=== PATIENT | female | born 1955 | race Hispanic/Latino ===

== ENCOUNTER 2018-03-01 07:15 | Day surgery (SDC) | payer MEDICARE, OTHER ==
[2018-02-28 13:03] LABS: APPEARANCE,URINE Clear (CLEAR); BASOPHILS % (AUTO) 0.8 % (0.0-5.0); BILIRUBIN,URINE Negative (NEGATIVE); COLOR,URINE Yellow (YELLOW); EOSINOPHILS % (AUTO) 7.2 % (0.0-8.0); GLUCOSE, URINE (UA) Negative (NEGATIVE); HEMATOCRIT 40.2 % (36-48); KETONES,URINE Negative (NEGATIVE); LEUKOCYTE ESTERASE ,URINE Negative (NEGATIVE); LYMPHOCYTES % (AUTO) 33.5 % (21.0-51.0); MEAN CORPUSCULAR HEMOGLOBIN 27.6 pg (27.0-33.0); MEAN CORPUSCULAR VOLUME 86.3 fL (79-99); MONOCYTES % (AUTO) 9.3 % (3.0-13.0); NEUTROPHILS % (AUTO) 49.2 % (40.0-77.0); NITRATE,URINE Negative (NEGATIVE); NUCLEATED RED BLOOD CELLS 0.1 % (0.0-0.19); OCCULT BLOOD,URINE Negative (NEGATIVE); PLATELET COUNT (AUTO) 221 K/uL (130-400); PROTEIN,URINE Negative (NEGATIVE); RED BLOOD CELL COUNT(AUTO) 4.66 MIL/uL (4.00-5.50); RED CELL DISTRIBUTION WIDTH 13.8 % (11.0-15.5); UROBILINOGEN,URINE 0.2 mg/dL (0.2-1.0)
[2018-02-28 13:19] LABS: ALBUMIN 4.1 g/dL (3.5-5.0); BILIRUBIN,TOTAL 0.7 mg/dL (0.2-1.0); CREATININE 0.6 mg/dL (0.5-1.5); TOTAL PROTEIN, SERUM 7.7 g/dL (6.0-8.3)
[2018-02-28 13:20] LABS: INR 0.94 (0.85-1.15); PARTIAL THROMBOPLASTIN TIME 28.3 SEC (26.3-35.5); PROTHROMBIN TIME 9.9 SEC (9.6-11.6)
[2018-02-28 13:42] VITALS: BP 160/63
--- NOTE | 2018-02-28 17:09 | NUR ---
CHEST XRAY REPORTED ABNORMAL CHEST XRAY TO DR. PATE. NO NEW ORDERS.
[2018-03-01] VITALS (14 sets, daily range): BP systolic 125–162; BP diastolic 60–74
[~2018-03-01] VITALS: Ht 149.9 cm; Wt 63.2 kg
[~2018-03-01 07:15] MED LIST: FLUT1DIS3 IH; GLUC100019 PO; IBUP200C5
[2018-03-01] MEDS: CEFAZOLIN SODIUM 1 GM VIAL IVP ONE ×2 (08:26→12:50)
[2018-03-01] MEDS ORDERED: LIDOCAINE PF 2% 5ML ABBOJECT ONE (12:08)
[2018-03-01] MEDS ORDERED: DEXAMETHASONE SOD PHOSPHATE 10MG/ML 1ML VIAL ONE (12:08)
[2018-03-01] MEDS ORDERED: PROPOFOL 10 MG/ML 20ML VIAL IV ONE (12:08)
[2018-03-01] MEDS ORDERED: MIDAZOLAM HCL 1 MG/ML 2ML VIAL ONE (12:09)
[2018-03-01] MEDS ORDERED: NEOSTIGMINE 5MG/5ML SYR IV ONE (12:09)
[2018-03-01] MEDS ORDERED: ONDANSETRON HCL 4 MG/2 ML VIAL ONE (12:09)
[2018-03-01] MEDS ORDERED: ROCURONIUM 10MG/1ML SYR 10 MG/ML ML ONE (12:09)
[2018-03-01] MEDS ORDERED: GLYCOPYRROLATE 1 MG/5 ML SYRINGE ONE (12:09)
[2018-03-01] MEDS ORDERED: CEFAZOLIN SODIUM 1 GM VIAL ONE ×2 (12:55→12:57)
[2018-03-01] MEDS ORDERED: LACTATED RINGERS 1000ML 1,000 ML IV ONE (13:03)
[2018-03-01] MEDS ORDERED: MEPERIDINE-PF 25 MG/ML SYG ONE ×2 (13:56→14:13)
--- NOTE | 2018-03-01 14:40 | NUR ---
NEW PT received pt from PACU, s/p right tenosynovectomy of flexor tendon , right wrist median nerve neuroplasty and release. bulky dressing noted to right wrist, neurovascular checks to right hand wnl. pt able to wiggle fingers, warm to touch, ice packs to site. vs stable on arrival. pt awake and alert.
--- NOTE | 2018-03-01 15:11 | NUR ---
DC DC INSTRUCTIONS REVIEWED AND GIVEN TO PT /PT FAMILY IN DETAILED, PHOTOCOPY OF DC ORDERS GIVEN , INSTRUCTED TO F/U WITH DR. PATE 03/02/18 AT 10:30 AM TO KEEP RIGHT ARM ELEVATED ABOVE HEART LEVEL. TO CONTINUE ROM TO RIGHT HAND FINGERS, TO KEEP DRESSING DRY AND INTACT AT ALL TIMES. TO TAKE MOTRIN OVER THE COUNTER WITH FOOD, MOTRIN 600MG PO Q 8 HRS PRN PAIN, TO TAKE COPY OF ABNORMAL CHEST XRAY TO PRIMARY DOCTOR . PT/ FAMILY VERBALIZED UNDERSTANDING. PIV REMOVED CATHETER INTACT SITE ASYMPTOMATIC. PT WILL GET DRESS AND DC HOME ONCE READY.
--- NOTE | 2018-03-01 15:35 | NUR ---
dc pt dc home, accompanied by family, pt awake and alert, right hand dressing dry and intact.
== END 2018-03-01 15:35 | disposition home or self-care (01) ==
LOC: DAH 07:15
DX: G56.01 Carpal tunnel syndrome, right upper limb (principal); M65.821 Other synovitis and tenosynovitis, right upper arm; I10 Essential (primary) hypertension; J45.909 Unspecified asthma, uncomplicated; Z98.890 Other specified postprocedural states; Z79.899 Other long term (current) drug therapy; Z90.710 Acquired absence of both cervix and uterus; Z79.01 Long term (current) use of anticoagulants
CPT/HCPCS: 25115; 36415; 64721; 71045; 80053; 81003; 85025; 85610; 85730; 88304; 93005; A4649; A6223; A6446; J0690; J1100; J2001; J2175 ×2; J2250; J2405; J2704; J2710; J3490; J7120 ×2; A4218

== ENCOUNTER 2018-07-19 08:21 | Day surgery (SDC) | payer MEDICARE, OTHER ==
[2018-07-18 11:29] VITALS: BP 145/68
[2018-07-18 11:29] LABS: BASOPHILS % (AUTO) 0.3 % (0.0-5.0); EOSINOPHILS % (AUTO) 2.7 % (0.0-8.0); HEMATOCRIT 40.1 % (36-48); LYMPHOCYTES % (AUTO) 23.8 % (21.0-51.0); MEAN CORPUSCULAR HEMOGLOBIN 28.4 pg (27.0-33.0); MEAN CORPUSCULAR HGB CONC 32.8 g/dL (32.0-36.0); MEAN CORPUSCULAR VOLUME 86.8 fL (79-99); MONOCYTES % (AUTO) 7.2 % (3.0-13.0); PLATELET COUNT (AUTO) 208 K/uL (130-400); RED BLOOD CELL COUNT(AUTO) 4.62 MIL/uL (4.00-5.50); RED CELL DISTRIBUTION WIDTH 14.3 % (11.0-15.5); WHITE BLOOD COUNT (AUTO) 4.3 K/uL (4.8-10.8)
[2018-07-18 11:31] LABS: APPEARANCE,URINE Clear (CLEAR); BILIRUBIN,URINE Negative (NEGATIVE); COLOR,URINE Yellow (YELLOW); GLUCOSE, URINE (UA) Negative (NEGATIVE); KETONES,URINE Negative (NEGATIVE); LEUKOCYTE ESTERASE ,URINE Negative (NEGATIVE); NITRATE,URINE Negative (NEGATIVE); OCCULT BLOOD,URINE Negative (NEGATIVE); PROTEIN,URINE Negative (NEGATIVE); UROBILINOGEN,URINE 0.2 mg/dL (0.2-1.0)
[2018-07-18 11:41] LABS: BILIRUBIN,TOTAL 0.6 mg/dL (0.2-1.0); CREATININE 0.8 mg/dL (0.5-1.5); POTASSIUM 4.1 mmol/L (3.5-5.1); TOTAL PROTEIN, SERUM 7.5 g/dL (6.0-8.3)
[2018-07-18 11:44] LABS: INR 0.95 (0.85-1.15); PARTIAL THROMBOPLASTIN TIME 29.2 SEC (26.3-35.5)
[2018-07-18] MEDS: CEFAZOLIN SODIUM 1 GM VIAL IVP SCH (13:30)
[~2018-07-19] VITALS: Ht 149.9 cm; Wt 61.1 kg
[2018-07-19] VITALS (18 sets, daily range): BP systolic 96–151; BP diastolic 55–91
[2018-07-19] MEDS ORDERED: LACTATED RINGERS 1000ML 1,000 ML IV ONE (09:36)
[2018-07-19] MEDS ORDERED: GLUC-172 PO (10:12)
[2018-07-19] MEDS ORDERED: ATOR10TA PO (10:13)
[2018-07-19] MEDS ORDERED: CETI10CA5 PO (10:15)
--- NOTE | 2018-07-19 10:36 | NUR ---
POTENTIAL FOR INFECTION: NO SHAVING NEEDED TO LEFT HAND, WIPED WITH VITALY 2% CHLORHEXIDINE GLUCONATE CLOTH PATIENTS PRE-OP SKIN PREP PER AGNES MALAGON MA.
--- NOTE | 2018-07-19 11:08 | NUR ---
VALUABLES: PATIENT OK TO REMOVE UPPER AND LOWER DENTURES AND FOR BETZAIDA ISRAEL RN TO HOLD ON TO THEM DURING SURGERY. EXPLAINED TO PATIENT THAT ONCE SHE WAKES UP IN PACU WILL PLACE BACK ON.
[2018-07-19] MEDS ORDERED: MIDAZOLAM HCL 1 MG/ML 2ML VIAL ONE (11:14)
[2018-07-19] MEDS ORDERED: PROPOFOL 10 MG/ML 20ML VIAL IV ONE (11:14)
[2018-07-19] MEDS ORDERED: LIDOCAINE PF 2% 5ML ABBOJECT ONE (11:14)
[2018-07-19] MEDS ORDERED: FENTANYL CITRATE PF 50 MCG/1 ML 2ML VIAL ONE ×2 (11:15→11:33)
[2018-07-19] MEDS: CEFAZOLIN SODIUM 1 GM VIAL IVP SCH (11:23)
[2018-07-19] MEDS ORDERED: ONDANSETRON HCL 4 MG/2 ML VIAL ONE (11:48)
[2018-07-19] MEDS ORDERED: MEPERIDINE-PF 25 MG/ML SYG ONE (12:42)
== END 2018-07-19 14:25 | disposition home or self-care (01) ==
LOC: DAH 08:21
DX: G56.02 Carpal tunnel syndrome, left upper limb (principal); M65.88 Other synovitis and tenosynovitis, other site; Z98.890 Other specified postprocedural states; Z79.899 Other long term (current) drug therapy; Z79.01 Long term (current) use of anticoagulants
CPT/HCPCS: 25115; 36415; 64721; 71045; 80053; 81003; 85025; 85610; 85730; 88305; 93005; A4649; A4930; A6223; A6446; J0690; J2001; J2175; J2250; J2405; J2704; J3010 ×2; J7120; Q4051

== ENCOUNTER 2019-12-22 00:22 | Emergency (ER) | payer MEDICARE, OTHER ==
[~2019-12-22 00:22] MED LIST changes: +ATOR10TA PO; +CETI10CA5 PO; +GLUC-172 PO; -GLUC100019 PO
[2019-12-22] MEDS ORDERED: ONDANSETRON HCL 4 MG/2 ML VIAL ONE (00:47)
[2019-12-22] MEDS ORDERED: HYDROMORPHONE HCL 0.5 MG/0.5 ML ML ONE (00:48)
[2019-12-22 00:56] LABS: APPEARANCE,URINE Clear (CLEAR); BILIRUBIN,URINE Negative (NEGATIVE); COLOR,URINE Yellow (YELLOW); GLUCOSE, URINE (UA) Negative (NEGATIVE); KETONES,URINE Negative (NEGATIVE); LEUKOCYTE ESTERASE ,URINE Negative (NEGATIVE); NITRATE,URINE Negative (NEGATIVE); OCCULT BLOOD,URINE Negative (NEGATIVE); PROTEIN,URINE Negative (NEGATIVE); UROBILINOGEN,URINE 0.2 mg/dL (0.2-1.0)
[2019-12-22 01:05] LABS: BASOPHILS % (AUTO) 0.4 % (0.0-5.0); EOSINOPHILS % (AUTO) 2.7 % (0.0-8.0); HEMATOCRIT 27.3 % (36-48); LYMPHOCYTES % (AUTO) 15.7 % (21.0-51.0); MEAN CORPUSCULAR HEMOGLOBIN 28.1 pg (27.0-33.0); MEAN CORPUSCULAR HGB CONC 31.5 g/dL (32.0-36.0); MEAN CORPUSCULAR VOLUME 89.2 fL (79-99); MONOCYTES % (AUTO) 7.4 % (3.0-13.0); NEUTROPHILS % (AUTO) 73.3 % (40.0-77.0); PLATELET COUNT (AUTO) 144 K/uL (130-400); RED BLOOD CELL COUNT(AUTO) 3.06 MIL/uL (4.00-5.50); WHITE BLOOD COUNT (AUTO) 5.6 K/uL (4.8-10.8)
[2019-12-22 01:22] LABS: CREATININE 0.7 mg/dL (0.5-1.5); POTASSIUM 4.5 mmol/L (3.5-5.1)
[2019-12-22] MEDS ORDERED: IOHEXOL-350 75 ML VIAL IV ONE (01:25)
[2019-12-22 01:26] LABS: BILIRUBIN,TOTAL 0.6 mg/dL (0.2-1.0); TOTAL PROTEIN, SERUM 8.5 g/dL (6.0-8.3)
[2019-12-22] MEDS ORDERED: MAGNESIUM CITRATE 296 ML SOLUTION ONE (02:53)
== END 2019-12-22 04:09 | disposition home or self-care (01) ==
LOC: EDH 00:22
DX: K59.00 Constipation, unspecified (principal); K43.9 Ventral hernia without obstruction or gangrene; R11.10 Vomiting, unspecified; E78.5 Hyperlipidemia, unspecified; Z72.0 Tobacco use; M19.90 Unspecified osteoarthritis, unspecified site; E87.1 Hypo-osmolality and hyponatremia; Z88.6 Allergy status to analgesic agent
CPT/HCPCS: 36415; 74177; 80053; 81003; 83690; 85025; 93005; 96361 ×2; 96374; 96375; 99285; J1170; J2405; Q9967

== ENCOUNTER 2020-04-22 07:24 | Inpatient (IN) | payer MEDICARE, OTHER ==
[~2020-04-22] VITALS: Ht 152.4 cm; Wt 60.0 kg
[~2020-04-22 07:24] MED LIST changes: -IBUP200C5; +IBUP200C5 PO
[2020-04-22 08:13] LABS: BASOPHILS % (AUTO) 0.3 % (0.0-5.0); EOSINOPHILS % (AUTO) 1.1 % (0.0-8.0); HEMATOCRIT 39.1 % (36-48); LYMPHOCYTES % (AUTO) 11.7 % (21.0-51.0); MEAN CORPUSCULAR HEMOGLOBIN 28.2 pg (27.0-33.0); MEAN CORPUSCULAR HGB CONC 32.5 g/dL (32.0-36.0); MEAN CORPUSCULAR VOLUME 86.7 fL (79-99); MONOCYTES % (AUTO) 7.5 % (3.0-13.0); PLATELET COUNT (AUTO) 202 K/uL (130-400); RED BLOOD CELL COUNT(AUTO) 4.51 MIL/uL (4.00-5.50); RED CELL DISTRIBUTION WIDTH 13.8 % (11.0-15.5); WHITE BLOOD COUNT (AUTO) 9.1 K/uL (4.8-10.8)
[2020-04-22 08:15] LABS: APPEARANCE,URINE Clear (CLEAR); BILIRUBIN,URINE Negative (NEGATIVE); COLOR,URINE Yellow (YELLOW); GLUCOSE, URINE (UA) Negative (NEGATIVE); KETONES,URINE 15 mg/dL (NEGATIVE); LEUKOCYTE ESTERASE ,URINE Negative (NEGATIVE); NITRATE,URINE Negative (NEGATIVE); OCCULT BLOOD,URINE Negative (NEGATIVE); PH,URINE >=9.0 (5.0-8.0); PROTEIN,URINE Negative (NEGATIVE); UROBILINOGEN,URINE 0.2 mg/dL (0.2-1.0)
[2020-04-22 08:21] LABS: ALBUMIN 3.9 g/dL (3.5-5.0); BILIRUBIN,TOTAL 1.3 mg/dL (0.2-1.0); CREATININE 0.7 mg/dL (0.5-1.5); POTASSIUM 3.8 mmol/L (3.5-5.1); TOTAL PROTEIN, SERUM 8.1 g/dL (6.0-8.3)
[2020-04-22] MEDS ORDERED: ONDANSETRON 4MG INJ ONE (08:24)
[2020-04-22] MEDS ORDERED: KETOROLAC 30MG VIAL (30MG/ML) ONE (08:24)
[2020-04-22] MEDS ORDERED: 0.9%NACL 1000ML 1,000 ML IV ONE (08:28)
[2020-04-22 08:37] LABS: BACTERIA,URINE Few /HPF (None Seen); RBC,URINE 0-1 /HPF (0-1); SQUAMOUS EPITHELIAL CELL,UR Few /HPF (0-2); WBC,URINE 0-1 /HPF (0-1)
[2020-04-22] MEDS ORDERED: IOHEXOL-350 75 ML VIAL IV ONE (09:14)
[2020-04-22] MEDS ORDERED: ZOSYN 3.375GM+NS 50ML 50 ML IV ONE ×2 (10:56→17:31)
[2020-04-22] MEDS: LACTATED RINGERS 1000ML 1,000 ML IV NR (12:00)
[2020-04-22] MEDS: ZOSYN 3.375GM+NS 50ML 50 ML IV SCH (16:00)
[2020-04-22] MEDS ORDERED: ACETAMINOPHEN 325 MG TAB ONE (17:01)
[2020-04-22] MEDS ORDERED: LACTATED RINGERS 1000ML 1,000 ML IV ONE (17:31)
[2020-04-22] MEDS ORDERED: MORPHINE 2 MG SYG IVP PRN (18:00)
[2020-04-22] MEDS ORDERED: MORPHINE 2 MG SYG ONE (18:01)
[2020-04-22 23:12] VITALS: BP 137/67
[2020-04-22] MEDS ORDERED: DICY20TA2 PO (23:54)
[2020-04-22] MEDS ORDERED: TRAZ-253 PO (23:54)
[2020-04-23] MEDS: TRAZODONE HCL 50 MG TAB PO SCH ×2 (00:55→20:29)
[2020-04-23] MEDS: ZOSYN 3.375GM+NS 50ML 50 ML IV SCH ×4 (00:57→23:54)
[2020-04-23] MEDS: LACTATED RINGERS 1000ML 1,000 ML IV NR ×4 (00:57→23:54)
[2020-04-23 04:40] VITALS: BP 117/51
[2020-04-23 07:00] VITALS: BP 114/70
[2020-04-23 07:51] LABS: BASOPHILS % (AUTO) 0.5 % (0.0-5.0); EOSINOPHILS % (AUTO) 4.8 % (0.0-8.0); HEMATOCRIT 34.4 % (36-48); LYMPHOCYTES % (AUTO) 15.3 % (21.0-51.0); MEAN CORPUSCULAR HEMOGLOBIN 27.4 pg (27.0-33.0); MEAN CORPUSCULAR HGB CONC 30.8 g/dL (32.0-36.0); MEAN CORPUSCULAR VOLUME 88.9 fL (79-99); NEUTROPHILS % (AUTO) 70.1 % (40.0-77.0); PLATELET COUNT (AUTO) 183 K/uL (130-400); RED BLOOD CELL COUNT(AUTO) 3.87 MIL/uL (4.00-5.50); RED CELL DISTRIBUTION WIDTH 13.8 % (11.0-15.5); WHITE BLOOD COUNT (AUTO) 5.8 K/uL (4.8-10.8)
[2020-04-23 07:53] LABS: CREATININE 0.7 mg/dL (0.5-1.5)
[2020-04-23 11:30] VITALS: BP 143/50
[2020-04-23] MEDS ORDERED: ALBUTEROL INHALER 90MCG/INH IH PRN (13:15)
[2020-04-23 16:00] VITALS: BP 120/57
[2020-04-23 19:42] VITALS: BP 140/68
[2020-04-24 00:18] VITALS: BP 121/45
[2020-04-24 04:27] VITALS: BP 115/59
[2020-04-24 06:08] LABS: BASOPHILS % (AUTO) 0.5 % (0.0-5.0); EOSINOPHILS % (AUTO) 6.2 % (0.0-8.0); HEMATOCRIT 33.3 % (36-48); LYMPHOCYTES % (AUTO) 20.3 % (21.0-51.0); MEAN CORPUSCULAR HEMOGLOBIN 27.7 pg (27.0-33.0); MEAN CORPUSCULAR HGB CONC 31.8 g/dL (32.0-36.0); MEAN CORPUSCULAR VOLUME 87.2 fL (79-99); MONOCYTES % (AUTO) 8.2 % (3.0-13.0); NEUTROPHILS % (AUTO) 64.6 % (40.0-77.0); PLATELET COUNT (AUTO) 193 K/uL (130-400); RED BLOOD CELL COUNT(AUTO) 3.82 MIL/uL (4.00-5.50); RED CELL DISTRIBUTION WIDTH 13.2 % (11.0-15.5)
[2020-04-24 06:22] LABS: CREATININE 0.7 mg/dL (0.5-1.5); POTASSIUM 3.6 mmol/L (3.5-5.1)
[2020-04-24 08:00] VITALS: BP 150/67
[2020-04-24] MEDS ORDERED: ALPRAZOLAM 0.25 MG TABLET PO SCH (08:15)
[2020-04-24] MEDS: ZOSYN 3.375GM+NS 50ML 50 ML IV SCH (09:38)
[2020-04-24 12:15] VITALS: BP 149/63
== END 2020-04-24 13:45 | disposition home or self-care (01) | DRG 392 ==
LOC: EDH 07:24 → EDHIP 11:39 → 3BH 21:16
PROVIDERS: ADMIT Internal Medicine; ATTEND Internal Medicine
DX: K57.92 Diverticulitis of intestine, part unspecified, without perforation or abscess without bleeding (principal); K56.7 Ileus, unspecified; M19.90 Unspecified osteoarthritis, unspecified site; F17.210 Nicotine dependence, cigarettes, uncomplicated; J45.909 Unspecified asthma, uncomplicated; Z66 Do not resuscitate; Z90.49 Acquired absence of other specified parts of digestive tract; Z90.710 Acquired absence of both cervix and uterus; Z83.3 Family history of diabetes mellitus; Z82.5 Family history of asthma and other chronic lower respiratory diseases; Z82.3 Family history of stroke; Z82.0 Family history of epilepsy and other diseases of the nervous system; Z80.9 Family history of malignant neoplasm, unspecified; Z82.49 Family history of ischemic heart disease and other diseases of the circulatory system
CPT/HCPCS: 36415; 74177; 80048; 80053; 81001; 84145; 85025; 85651; 86140; 87040; 93005; G0378; J1885; J2405; J2543; J7030; J7120; Q9967

== ENCOUNTER → 2020-06-04 | Outpatient (CLI) | payer MEDICARE, OTHER ==
[~2020-06-04] MED LIST changes: -ATOR10TA PO; +DICY20TA2 PO; +LIDOCAINE HCL 2% JELLY 5 ML TP ONE; +TRAZ-253 PO
== END | disposition home or self-care (01) ==
LOC: WHH 09:45
PROVIDERS: ATTEND Family Medicine
DX: S81.802A Unspecified open wound, left lower leg, initial encounter (principal); J45.909 Unspecified asthma, uncomplicated; M19.90 Unspecified osteoarthritis, unspecified site; F17.210 Nicotine dependence, cigarettes, uncomplicated; Z90.710 Acquired absence of both cervix and uterus; X58.XXXA Exposure to other specified factors, initial encounter; Y93.89 Activity, other specified; Y92.89 Other specified places as the place of occurrence of the external cause; Y99.8 Other external cause status
CPT/HCPCS: 11042; A4450; A6021; A6197

== ENCOUNTER → 2020-06-18 | Outpatient (CLI) | payer MEDICARE, OTHER ==
[~2020-06-18] MED LIST changes: -LIDOCAINE HCL 2% JELLY 5 ML TP ONE
== END | disposition home or self-care (01) ==
LOC: WHH 09:00
PROVIDERS: ATTEND Family Medicine
DX: S81.802D Unspecified open wound, left lower leg, subsequent encounter (principal); J45.909 Unspecified asthma, uncomplicated; M19.90 Unspecified osteoarthritis, unspecified site; F17.210 Nicotine dependence, cigarettes, uncomplicated; Z90.710 Acquired absence of both cervix and uterus; X58.XXXD Exposure to other specified factors, subsequent encounter
CPT/HCPCS: G0463

== ENCOUNTER 2021-06-14 08:50 | Emergency (ER) | payer MEDICARE, OTHER ==
[~2021-06-14] VITALS: Ht 152.4 cm; Wt 59.9 kg
[2021-06-14 09:30] LABS: BASOPHILS % (AUTO) 0.5 % (0.0-5.0); EOSINOPHILS % (AUTO) 2.9 % (0.0-8.0); HEMATOCRIT 38.7 % (36-48); LYMPHOCYTES % (AUTO) 15.8 % (21.0-51.0); MEAN CORPUSCULAR HEMOGLOBIN 28.2 pg (27.0-33.0); MEAN CORPUSCULAR HGB CONC 31.8 g/dL (32.0-36.0); MEAN CORPUSCULAR VOLUME 88.8 fL (79-99); MONOCYTES % (AUTO) 7.5 % (3.0-13.0); NEUTROPHILS % (AUTO) 72.4 % (40.0-77.0); PLATELET COUNT (AUTO) 204 K/uL (130-400); RED BLOOD CELL COUNT(AUTO) 4.36 MIL/uL (4.00-5.50); RED CELL DISTRIBUTION WIDTH 15.1 % (11.0-15.5); WHITE BLOOD COUNT (AUTO) 5.5 K/uL (4.8-10.8)
[2021-06-14 09:44] LABS: CREATININE 0.6 mg/dL (0.5-1.5); POTASSIUM 3.9 mmol/L (3.5-5.1)
[2021-06-14 09:48] LABS: ALBUMIN 3.8 g/dL (3.5-5.0); BILIRUBIN,TOTAL 0.5 mg/dL (0.2-1.0); MAGNESIUM 1.8 mg/dL (1.80-2.40); TOTAL PROTEIN, SERUM 7.1 g/dL (6.0-8.3)
[2021-06-14 10:15] LABS: B-TYPE NATRIURETIC PEPTIDE 44 pg/mL (0-100)
[2021-06-14 10:28] LABS: APPEARANCE,URINE Clear (CLEAR); BILIRUBIN,URINE Negative (NEGATIVE); COLOR,URINE Yellow (YELLOW); GLUCOSE, URINE (UA) Negative (NEGATIVE); KETONES,URINE Negative (NEGATIVE); LEUKOCYTE ESTERASE ,URINE Negative (NEGATIVE); NITRATE,URINE Negative (NEGATIVE); OCCULT BLOOD,URINE Negative (NEGATIVE); PROTEIN,URINE Negative (NEGATIVE); UROBILINOGEN,URINE 0.2 mg/dL (0.2-1.0)
[2021-06-14] MEDS ORDERED: IPRATROPIUM/ALBUTEROL SULFATE 3 ML SOLUTION IH ONE (11:00)
[2021-06-14] MEDS ORDERED: SOLU-MEDROL 125MG VIAL IVP ONE (11:00)
[2021-06-14] MEDS ORDERED: PRED20TA3 PO (12:47)
[2021-06-14] MEDS ORDERED: AZIT250T PO (12:47)
[2021-06-14] MEDS ORDERED: BENZ-39 PO (12:47)
[2021-06-14] MEDS ORDERED: AZITHROMYCIN 250 MG TABLET PO ONE (13:00)
[2021-06-14 13:06] VITALS: BP 135/74
== END 2021-06-14 13:07 | disposition home or self-care (01) ==
LOC: EDH 08:50
DX: J20.8 Acute bronchitis due to other specified organisms (principal); M19.90 Unspecified osteoarthritis, unspecified site; Z98.890 Other specified postprocedural states; Z79.899 Other long term (current) drug therapy
CPT/HCPCS: 36415; 71045; 80053; 81003; 82550; 83735; 83880; 84484; 85025; 93005; 94640; 96374; 99285; J2930

== ENCOUNTER → 2021-10-04 | Outpatient (CLI) | payer MEDICARE, OTHER ==
[~2021-10-04] MED LIST changes: +AZIT250T PO; +BENZ-39 PO; +PRED20TA3 PO
== END | disposition home or self-care (01) ==
LOC: RAH 11:22
PROVIDERS: ATTEND Dermatology
DX: J98.4 Other disorders of lung (principal); R76.12 Nonspecific reaction to cell mediated immunity measurement of gamma interferon antigen response without active tuberculosis
CPT/HCPCS: 71046

== ENCOUNTER 2021-11-20 02:37 | Emergency (ER) | payer MEDICARE, OTHER ==
[~2021-11-20] VITALS: Ht 154.9 cm; Wt 60.8 kg
[2021-11-20 03:16] LABS: BASOPHILS % (AUTO) 0.8 % (0.0-5.0); EOSINOPHILS % (AUTO) 22.1 % (0.0-8.0); HEMATOCRIT 43.3 % (36-48); LYMPHOCYTES % (AUTO) 12.2 % (21.0-51.0); MEAN CORPUSCULAR HGB CONC 31.4 g/dL (32.0-36.0); MEAN CORPUSCULAR VOLUME 89.1 fL (79-99); MONOCYTES % (AUTO) 7.7 % (3.0-13.0); NEUTROPHILS % (AUTO) 55.4 % (40.0-77.0); PLATELET COUNT (AUTO) 257 K/uL (130-400); RED BLOOD CELL COUNT(AUTO) 4.86 MIL/uL (4.00-5.50); RED CELL DISTRIBUTION WIDTH 15.3 % (11.0-15.5); WHITE BLOOD COUNT (AUTO) 10.5 K/uL (4.8-10.8)
[2021-11-20] MEDS: DEXAMETHASONE SOD PHOSPHATE 4 MG/ML 1ML VIAL IVP ONE (03:23)
[2021-11-20] MEDS: DiphenhydrAMINE HCL 50 MG/ML VIAL IV ONE (03:23)
[2021-11-20] MEDS: HYDROXYZINE 25 MG TABLET PO ONE (03:23)
[2021-11-20 03:26] LABS: CARBON DIOXIDE 28 mmol/L (21-32); CHLORIDE 106 mmol/L (101-111); CREATININE 0.7 mg/dL (0.5-1.5); GLOMERULAR FILTR. RATE CALC 88 mL/min (>60); GLUCOSE,RANDOM 85 mg/dL (70-105); POTASSIUM 3.7 mmol/L (3.5-5.1); SODIUM SERUM 142 mmol/L (136-145); UREA NITROGEN, BLOOD 18 mg/dL (7-18)
[2021-11-20] MEDS ORDERED: METH4TAB3 PO (03:29)
[2021-11-20] MEDS ORDERED: HYD25 PO (03:29)
[2021-11-20 03:30] LABS: ALANINE AMINOTRANSFERASE 44 U/L (12-78); ALBUMIN 4.1 g/dL (3.5-5.0); ASPARTATE AMINOTRANSFERASE 23 U/L (10-37); TOTAL PROTEIN, SERUM 7.6 g/dL (6.0-8.3)
[2021-11-20 03:32] LABS: CRP QUANTITATIVE < 2.00 mg/L (0.00-9.0)
[2021-11-20 03:57] VITALS: BP 164/64
== END 2021-11-20 04:29 | disposition home or self-care (01) ==
LOC: EDH 02:37
DX: R21 Rash and other nonspecific skin eruption (principal); L29.9 Pruritus, unspecified; Z79.899 Other long term (current) drug therapy; Z98.890 Other specified postprocedural states
CPT/HCPCS: 99284; 96374; 96375; 80053; 85025; 86140; 36415; J1100; J1200

== ENCOUNTER 2023-02-09 10:00 | Emergency (ER) | payer MEDICARE, OTHER ==
[~2023-02-09] VITALS: Ht 152.4 cm; Wt 59.0 kg
[~2023-02-09 10:00] MED LIST changes: +HYD25 PO; +METH4TAB3 PO
[2023-02-09 10:42] LABS: MEAN CORPUSCULAR HEMOGLOBIN 27.6 pg (27.0-33.0); MEAN CORPUSCULAR HGB CONC 32.1 g/dL (32.0-36.0); RED CELL DISTRIBUTION WIDTH 13.5 % (11.0-15.5); WHITE BLOOD COUNT (AUTO) 5.9 K/uL (4.8-10.8)
[2023-02-09 11:04] LABS: APPEARANCE,URINE CLEAR (CLEAR); BILIRUBIN,URINE NEGATIVE (NEGATIVE); COLOR,URINE YELLOW (YELLOW); GLUCOSE, URINE (UA) NEGATIVE (NEGATIVE); KETONES,URINE NEGATIVE (NEGATIVE); LEUKOCYTE ESTERASE ,URINE 75 Leu/uL (NEGATIVE); NITRATE,URINE NEGATIVE (NEGATIVE); PROTEIN,URINE NEGATIVE (NEGATIVE); UROBILINOGEN,URINE 0.2 mg/dL (0.2-1.0)
[2023-02-09 11:04] LABS: CREATININE 0.5 mg/dL (0.5-1.5); POTASSIUM 3.9 mmol/L (3.5-5.1)
[2023-02-09 11:05] LABS: ADD UA MICROSCOPIC YES
[2023-02-09 11:17] LABS: MAGNESIUM 1.8 mg/dL (1.80-2.40); THYROID STIMULATING HORMONE 0.98 uIU/mL (0.36-3.74)
[2023-02-09 11:25] LABS: BACTERIA,URINE RARE /HPF (None Seen); MUCUS,URINE RARE LPF (None Seen); SQUAMOUS EPITHELIAL CELL,UR FEW /HPF (0-2)
[2023-02-09] MEDS ORDERED: CEFTRIAXONE 2GM VIAL IVPB ONE (14:00)
[2023-02-09] MEDS ORDERED: TOPI25TA42 PO (14:08)
[2023-02-09] MEDS ORDERED: CEPH500B PO (14:08)
[2023-02-09 15:04] VITALS: BP 151/78; PULSE 70; RESP 18; O2SAT 99
== END 2023-02-09 15:05 | disposition home or self-care (01) ==
LOC: EDH 10:00
DX: N39.0 Urinary tract infection, site not specified (principal); G43.109 Migraine with aura, not intractable, without status migrainosus; Z79.51 Long term (current) use of inhaled steroids
CPT/HCPCS: 99285; 96365; 70450; 71045; 84443; 83735; 84484; 80048; 85027; 87088; 81001; 36415; 93005; J0696

== ENCOUNTER → 2023-03-06 | Outpatient (CLI) | payer MEDICARE ==
[~2023-03-06] MED LIST changes: +CEPH500B PO; +TOPI25TA42 PO
[2023-03-06] MEDS: REGADENOSON 0.4 MG/5 ML PF SYG IVP ONE (15:39)
== END | disposition home or self-care (01) ==
LOC: SHCH 09:02
PROVIDERS: ATTEND Internal Medicine
DX: R07.9 Chest pain, unspecified (principal)
CPT/HCPCS: 78452; 96374; 93017; J2785; A9500 ×2

== ENCOUNTER → 2023-03-23 | Outpatient (CLI) | payer MEDICARE | END | disposition home or self-care (01) | LOC: SHCH 15:06 | PROVIDERS: ATTEND Internal Medicine | DX: R07.9 Chest pain, unspecified (principal); I10 Essential (primary) hypertension | CPT/HCPCS: 93306 ==

== ENCOUNTER 2024-10-25 14:51 | Emergency (ER) | payer MEDICARE ==
[~2024-10-25] VITALS: Ht 147.3 cm; Wt 65.8 kg
--- NOTE | 2024-10-25 15:14 | ERN ---
General Chief Complaint: Nosebleed Stated Complaint: NOSE BLEED Time Seen by MD: 14:55 Source: patient History of Present Illness Initial Comments Patient is a 69-year-old female coming in complaining of bleeding nose. Per patient she was doing some shopping in noticed a trickle of blood coming from her nose which increased to significant amount. She decided to come in for fu rther evaluation she does not report any trauma. Allergies: Coded Allergies: No Known Drug Allergies (Unverified Allergy, Unknown, 04/23/20) No Known Food Allergies (Unverified Allergy, Unknown, 04/23/20) Home Meds Active Scripts Topiramate (Topamax) 25 Mg Tablet, 25 MG PO DAILYDINNER, #30 TAB 2 Refills Prov:MACKENZIE GROSS Sr., MD 02/09/23 Cephalexin Monohydrate (Keflex) 500 Mg Cap, 500 MG PO QID for 7 Days, #28 CAP 0 Refills Prov:MACKENZIE GROSS Sr., MD 02/09/23 Hydroxyzine HCl (Atarax) 25 Mg Tab, 25 MG PO QID for ITCHINESS, #30 TAB Prov:PATRICIA MILLER MD 11/20/21 Methylprednisolone (Medrol) 4 Mg Tab.ds.pk, 4 MG PO AD for 5 Days, #1 KIT Prov:PATRICIA MILLER MD 11/20/21 Azithromycin (Zithromax) 250 Mg Tablet, 250 MG PO DAILY for 4 Days, #4 TAB 0 Refills Prov:SILVIANO GOEL MD 06/14/21 Prednisone (Prednisone) 20 Mg Tablet, 1 TAB PO AD for 6 Days, #14 TAB 0 Refills TAKE 1 TAB BY MOUTH THREE TIMES PER DAY X3 DAYS, THEN TAKE 1 TAB BY MOUTH TWICE A DAY X2 DAYS, THEN TAKE 1 TAB BY MOUTH ONCE A DAY X1 DAY. Prov:SILVIANO GOEL MD 06/14/21 Benzonatate (Tessalon Perles) 100 Mg Cap, 100 MG PO TID PRN for COUGH, #30 CAP 0 Refills Prov:SILVIANO GOEL MD 06/14/21 Reported Medications Trazodone HCl (Desyrel) 50 Mg Tab, 1-2 TAB PO HS 04/22/20 Dicyclomine HCl (Bentyl) 20 Mg Tab, 1 TAB PO TID PRN for ABDOMINAL PAIN 04/22/20 Cetirizine HCl (Zyrtec) 10 Mg Capsule, 10 MG PO AM, CAP 07/19/18 Glucosamine/D3/Boswellia Roz (Osteo Bi-Flex Caplet) 1 Each Tablet, 1 EACH PO AM, TAB 07/19/18 Fluticasone/Salmeterol (Advair 250-50 Diskus) 1 Each Blst.w.dev, 1 EACH IH HS PRN for SHORTNESS OF BREATH/WHEEZING 05/19/15 Ibuprofen (Advil) 200 Mg Capsule, 200 MG PO Q4-6 H PRN for MILD PAIN (1-3), CAP 08/20/14 Past Medical History Past Medical History: No Pertinent History Past Surgical History: Other Surgical History Other: ABDOMINAL Social History Social History: Negative, Lives with family Female( History) History: Not Applicable ROS Dictation CONSTITUTIONAL: No chills, no fever, no weakness, no diaphoresis, no malaise. HEAD/FACE: No signs of trauma. EENT: No eye pain, no blurred vision, no tearing, no double vision, no ear pain, no ear discharge, no nose pain, no nasal congestion, no throat pain, no throat swelling, no mouth pain. RESPIRATORY: No cough, no orthopnea, no SOB, no stridor, no wheezing. CARDIOVASCULAR: No chest pain, no edema, no palpitations, no syncope. GASTROINTESTINAL/ABDOMINAL: No abdominal pain, no constipation, no diarrhea, no nausea, no vomiting. GENITOURINARY: No abnormal discharge, no dysuria, no frequent urination, no he maturia. No complaints of pain in the genitals. MUSCULOSKELETAL: No back pain, no gout, no joint pain, no joint swelling, no m uscle pain, no muscle stiffness, no neck pain. INTEGUMENTARY: No change in color, no change in hair/nails, no dryness, no lesi on, no lumps, no rash. NEUROLOGICAL/PSYCH: No anxiety, not depressed, no emotional problem, no headache, no numbness, no pre-existing deficit, no history of seizures, no tremors, no weakness. HEMATOLOGIC/LYMPHATIC: Not anemic, no history of blood clots, no apparent bleeding, no bruising, glands not swollen. All Systems Negative, Except as Noted. Physical Exam Physical Exam Dictation VITAL SIGNS: Reviewed. GENERAL APPEARANCE: Alert, oriented x3, no acute distress, obese. HEAD AND FACE: Non-traumatic. EYES: PERRL, pink conjunctivas, eyelid no trauma, anterior chamber clear. EARS: Pinnas intact and no signs of trauma or erythema. Ear canals clear and no discharge. TMs no erythema. NOSE: No discharge, no bleeding. OROPHARYNX: Mouth normal, teeth no caries, tongue pink. Pharynx clear, no erythema. Tonsils no exudates, no abscesses noted. Mucous membrane moist. NECK: Supple, non-tender, no thyromegaly, no masses, no JVD, no bruits. BREAST: Deferred. CHEST: No tenderness, no crepitus, no paradoxical movement, no retractions. LUNGS: Clear, well-ventilated, symmetric, no rales, no wheezing, no rhonchi, no stridor, good breath sounds bilaterally. HEART: Regular rate, regular rhythm, no murmur, no gallops. VASCULAR: No peripheral edema. ABDOMEN: Soft, positive bowel sounds, nondistended, no guarding, nontender, no rebound, no masses no hepatomegaly, no splenomegaly, no Bravo's sign, no hernias. RECTAL: Deferred. GENITAL: Deferred. NEUROLOGICAL: Normal speech, gross motor function intact, gross sensory function intact. MUSCULOSKELETAL: Neck nontender, full range of motion, back nontender, full range of motion. EXTREMITIES: Nontender, full range of motion. SKIN: Color pink, dry, no turgor, no rash, no lacerations, no abrasions, no contusions. LYMPHATICS: Deferred. Results Laboratory and Microbiology Labs Reviewed?: Yes MDM MDM: Differential diagnosis: Epistaxis, no nasal bleed, Rationale: Tests considered and ordered secondary to shared decision making include: Previous outside records reviewed: Old ER visits. Risk of complication and/or morbidity or mortality of patient management: None Medications-Per medication reconciliation Need for hospitalization: Patient does not meet criteria for hospitalization. Need for emergency major/minor surgery: No Patient is a 69-year-old female coming in complaining of the epistaxis. Per patient she has a smell at the store which increased. In triage patient did not have bleeding. Afrin was sprayed patient was monitored for an hour and 20 minutes no bleeding was present. Patient will be discharged in stable condition with a diagnosis of epistaxis. ED Course Orders Procedure Category Date Status Time Oxymetazoline Hcl PHA 10/25/24 In Process [place] (Afrin) 15:00 Neomy PHA 10/25/24 Complete Sulf/Bacitra/Polymyxin 15:00 Current Medications Medications (Trade) Dose Ordered Sig/Ana [place]isa Route PRN Reason Start Time Stop Time Status Last Admin Dose Admin Neomycin/ Polymyxin/ Bacitracin (Triple Antibiotic Ointment) 1 appl ONCE ONCE TP 10/25/24 15:00 10/25/24 15:02 DC 10/25/24 15:30 Oxymetazoline HCl (AFrin) 2 sprays ONCE EN 10/25/24 15:00 11/24/24 14:59 10/25/24 15:30 Vital Signs Date Time Temp Pulse Resp B/P (MAP) Pulse Ox O2 Delivery O2 Flow Rate FiO2 10/25/24 15:01 98.1 56 16 148/82 98 Room Air* 0 21 10/25/24 14:53 97.0 60 20 148/84 99 Room Air DX & DISP Disposition: Discharge Departure Impression: Primary Impression: Epistaxis Condition: Stable Scripts Loratadine (Loratadine) 10 Mg Tablet 1 TAB PO DAILY for allergy symptoms for 30 Days, #30 TAB 0 Refills Prov: JOHN SAMS MD 10/25/24 Sodium Chloride ([place] Saline) 0.65 % Drops 2 DROP NS QID, #50 ML 0 Refills Prov: JOHN SAMS MD 10/25/24 Additional Instructions: FOLLOW-UP WITH PRIMARY CARE PROVIDER IN 1 TO 2 DAYS. TAKE MEDICATIONS DIRECTED HERE IN THE EMERGENCY ROOM. OKAY TO CONTINUE HOME MEDICATIONS UNLESS OTHERWISE DISCUSSED DURING YOUR VISIT IN THE EMERGENCY ROOM TODAY. RETURN TO YOUR NEAREST EMERGENCY ROOM IF SYMPTOMS WORSEN OR IF THERE IS NO IMPROVEMENT. CALL 911 IF YOU NEED IMMEDIATE ASSISTANCE. TAKE TYLENOL [id number] NEEDED AND IF NO CONTRAINDICATIONS ARE PRESENT. INCREASE ORAL HYDRATION. A WOUND CULTURE OR URINE CULTURE WAS ORDERED HERE IN THE EMERGENCY ROOM DEPARTMENT PLEASE FOLLOW-UP WITH PRIMARY CARE PROVIDER AND ADVISE THEM TO GET REPORTS FROM OUR FACILITY. IF YOU HAD ANY EVELINA WRAP/SPLINTS THAT WERE APPLIED HERE, PLEASE DO NOT REMOVE THEM UNTIL YOU SEE YOUR PRIMARY CARE OR SPECIALTY. Referrals: Referrals: ISAMAR NEIL (PCP) KITA WARNER MD Time of Disposition: 16:13 JOHN SAMS MD Oct 25, 2024 15:14
[2024-10-25] MEDS: OXYmetazoline HCL SPRAY 100 SPRAYS/15 ML BOTTLE EN SCH (15:30)
[2024-10-25] MEDS: NEOMY SULF/BACITRA/POLYMYXIN B 1 EACH PACKET TP ONE (15:30)
[2024-10-25] MEDS ORDERED: LORA10TA7 PO (16:14)
[2024-10-25] MEDS ORDERED: SODI50DR NS (16:14)
[2024-10-25 16:15] VITALS: BP 148/80; PULSE 60; RESP 16; TEMP 98.1; O2SAT 98
== END 2024-10-25 16:20 | disposition home or self-care (01) ==
LOC: EDH 14:51
DX: R04.0 Epistaxis (principal); Z79.51 Long term (current) use of inhaled steroids; Z79.899 Other long term (current) drug therapy
CPT/HCPCS: 99282

== ENCOUNTER 2024-12-18 06:57 | Observation (INO) | payer MEDICARE ==
[2024-12-17 10:31] VITALS: BP 142/78; PULSE 71; RESP 15; TEMP 98.1
--- NOTE | 2024-12-17 10:32 | EKG ---
[facility] Test Date: 2024-12-17 Test Time: 11:17:16 Pat Name: ALEX BELLA Department: [facility] Room: 418 Gender: F Modeling Director: [id number] : 1955 Requested By: KIM CODY Order Number: [id number] Reading MD: Daria Mcmanus Measurements Intervals [place] Rate: 82 P: 56 CA: 135 QRS: 22 QRSD: 78 T: 43 QT: 374 QTc: 436 Interpretive Statements Sinus rhythm Compared to ECG 02/09/2023 10:19:44 No significant changes Electronically Signed On 12-19-2024 12:38:45 CHEMICAL MACHINE TENDER by Daria Mcmanus Please click the below link to view image of tracing.
[2024-12-17 10:37] LABS: IMMATURE GRANULOCYTE ABSOLUTE 0.16 K/uL (0-1); NUCLEATED RED BLOOD CELLS 0.0 % (0.0-0.19); PLATELET COUNT (AUTO) 271 K/uL (130-400); RED BLOOD CELL COUNT(AUTO) 4.67 MIL/uL (4.00-5.50); RED CELL DISTRIBUTION WIDTH 14.2 % (11.0-15.5); WHITE BLOOD COUNT (AUTO) 5.4 K/uL (4.8-10.8)
[2024-12-17 10:54] LABS: INR 0.97 (0.85-1.15)
--- NOTE | 2024-12-17 14:26 | NUR ---
RE: YEAST INFECTION REPORTED TO DR CODY THAT PATIENT IS TAKING FLUCONAZOLE/METRONIDAZOLE PO FOR VAGINAL YEAST INFECTION. NO NEW ORDERS, OK TO PROCEED.
[~2024-12-18] VITALS: Ht 147.3 cm; Wt 69.4 kg
[2024-12-18] VITALS (24 sets, daily range): BP systolic 120–199; BP diastolic 54–101; PULSE 75–89; RESP 15–20; TEMP 97.2–98.2; O2SAT 98
[~2024-12-18 06:57] MED LIST changes: +ADV250 IH; -AZIT250T PO; -BENZ-39 PO; -CEPH500B PO; -CETI10CA5 PO; -DICY20TA2 PO; +FLUC150T48 PO; -FLUT1DIS3 IH; -GLUC-172 PO; -HYD25 PO; -IBUP200C5 PO; -METH4TAB3 PO; +METR-172 PO; -PRED20TA3 PO; +SENN8.6T32 PO; -TOPI25TA42 PO; -TRAZ-253 PO
[2024-12-18] MEDS: LACTATED RINGERS 1000ML 1,000 ML IV ONE (07:34)
[2024-12-18] MEDS: TRANEXAMIC ACID 1000MG/10ML ONE (07:55)
[2024-12-18] MEDS ORDERED: LIDOCAINE PF 100MG/5ML (2%) SYRINGE 5ML ONE (08:01)
[2024-12-18] MEDS ORDERED: SUCCINYLCHOLINE CHLORIDE 20 MG/ML 10 ML VIAL ONE (08:01)
[2024-12-18] MEDS ORDERED: GLYCOPYRROLATE 0.2 MG/ML 5 ML VIAL ONE (08:02)
[2024-12-18] MEDS ORDERED: NEOSTIGMINE METHYLSULFATE 1MG/ML IV ONE (08:02)
[2024-12-18] MEDS ORDERED: MIDAZOLAM HCL 1 MG/ML 2ML VIAL ONE (08:05)
[2024-12-18] MEDS: SUGAMMADEX SODIUM 200 MG/2 ML VIAL IV ONE (08:08)
[2024-12-18] MEDS: FAMOTIDINE 20MG VIAL IV ONE (08:09)
[2024-12-18] MEDS ORDERED: PROMETHAZINE HCL 25 MG/ML 1ML AMPULE IM PRN (08:30)
[2024-12-18] MEDS: TRANEXAMIC ACID 1000MG/10ML IV ONE ×2 (09:40→11:55)
--- NOTE | 2024-12-18 11:57 | OP ---
Operative Note: DATE OF PROCEDURE: 12/18/24 PREOPERATIVE DIAGNOSIS: Right knee osteoarthritis. POSTOPERATIVE DIAGNOSIS: Right knee osteoarthritis. PROCEDURE PERFORMED: Right knee total knee arthroplasty. SURGEON: Beata Sepulveda MD [facility] NURSING DIRECTOR: Marielena Golden. ANESTHESIA: General with adductor canal block. ANESTHESIA: BRONWYN Escobedo. ESTIMATED BLOOD LOSS: 100cc. COMPLICATIONS: None. DRAINS: None. SPECIMENS REMOVED: resected bone. Not sent to pathology. IMPLANTS: [employer] Journey II BCS size 4 Oxinium femur, size 2 tibial base plate, 32 mm patella, 9 mm polyethylene STATEMENT OF MEDICAL NECESSITY: The patient is a 69-year-old female who suffers from right knee osteoarthritis failing conservative management. After discussion of the risks, benefits, and alternatives with the patient, they voluntarily agreed to undergo the aforementioned procedure. DESCRIPTION OF PROCEDURE: Patient was properly identified in the preoperative holding area. Surgical site marking was verified and surgery consent reviewed. The patient was then taken to the operating room and placed in supine position on the OR table. After induction of general anesthesia, preoperative antibiotics were given, all bony prominences were well-padded, and a well padded tourniquet was applied but not inflated at this time. The right lower extremity was then prepped and draped in usual sterile fashion. Surgical time out was done verifying correct surgery, side, site, and location to be performed. We then began the procedure by exsanguinating the limb using an Esmarch and inflating the tourniquet to 350 mmHg. At this point, we made an anterior midline incision using a 10 blade, coming down sharply the level of the fascia. Skin flaps were elevated medially and laterally. We then obtained a clean 10 blade and performed a standard medial parapatellar arthrotomy. We excised the infrapatellar fat pad. We performed our soft tissue releases off of the tibia. We transected the ACL and removed the anterior portion of the medial & lateral meniscus. We then brought the knee into hyperflexion with the patella everted. We used our entry reamer to enter the femoral canal. We then placed our intramedullary cutting guide for our distal femoral cutting block. We then performed our distal femoral osteotomy ensuring appropriate rotation and removed the bony wafer. However, secondary to limited lateral femoral condyle resection, we elected to go ahead and take +2 mm this time. We then removed these pins and block and then used jig 2 to size the distal femur with the after mentioned size found. We then placed our 5-in-1 cutting block in 5 degrees of external rotation and took our 5 cuts ensuring to protect the patellar tendon and the collateral ligaments. We then removed the cutting block and our bony fragments using a curved osteotome. We then placed our PCL retractor subluxating the tibia anteriorly. Using an extra medullary tibial cutting guide, we hung the block for our proximal tibial cut taking 2 mm off the more diseased portion. Prior to pinning this block in place, we ensured appropriate varus/valgus alignment and posterior slope similar to the [place] slope of the patient's knee. We then performed our proximal tibial osteotomy and removed the bony wafer using Bovie electrocautery to release any remaining soft tissue attachments. We then used our tibial sizing paddle and checked once more for varus & valgus alignment and found this to be appropriate. At this point, we pinned our tibial paddle in place. We then removed the PCL retractor and subluxated the tibia posteriorly while we placed our femoral trial component. We then finished preparing the notch with the reamer and box chisel. The notch portion of the trial femoral component was then placed. A posterior stabilized polyethylene, size 9 trial was placed. The knee was then taken through range of motion and found to have stable full range of motion. We then placed a bump under the ankle and everted the patella to perform our freehand cut of the undersurface the patella. We then sized our patella and reamed to the lug holes for this. We placed our trial patellar component and begin to take the knee through range of motion. The patella had significant lateral tracking, and we performed a large lateral release. We persisted with significant lateral tracking that improved after externally rotating the tibial component is slightly more. At this point we began removing our trial components and punched the tibial keel prior to removing our tibial trial component. Final components were opened and cement was mixed on the back table while we injected local cocktail in the posterior capsule. We then thoroughly irrigated out the bone and dried the bony surfaces. We cemented our tibial component in place ensuring to remove excess cement and placed our trial polyethylene. We then cemented our femoral component in place once again taking time to ensure excess cement was removed leg was brought into full extension to help squeeze the excess cement from around the femoral component. We then brought the knee back in a flexion to remove this portion of the cement at this point we placed the ankle in a bump thoroughly irrigated off the patellar component and cemented our patellar component in standard fashion again removing excess cement. While we waited for the cement to cure, we thoroughly irrigated out the wound with normal saline. Once our cement had cured, we took the knee through a range of motion and found full and stable range of motion. We then elected to use the size 9 polyethylene and removed our trial polyethylene. We impacted our final polyethylene component in place in standard fashion and took the knee through a range of motion check once more. This was satisfactory so we began to repair the arthrotomy using #1 Vicryl in interrupted [id number] fashion. Subcutaneous tissue was repaired using 2-0 Vicryl. Running subcuticular 3-0 Monocryl stitch with Dermabond placed over this for the skin. We then applied a foam barrier dressing and a pressure dressing consisting of 4 x 4's fluffs and an Yaron wrap. The tourniquet was then deflated. Patient was awakened from anesthesia, and they were taken to the recovery room in stable condition. BEATA SEPULVEDA MD Dec 18, 2024 11:57
[2024-12-18] MEDS ORDERED: FERROUS FUMARATE 324 MG TABLET PO PRN (12:00)
[2024-12-18] MEDS ORDERED: CALCIUM CARB 500MG PO PRN (12:00)
[2024-12-18] MEDS ORDERED: HYDROcodone/APAP 5/325 1 TAB TABLET PO PRN (12:00)
[2024-12-18] MEDS ORDERED: PoTASSium chl 10% ELIXIR 20MEQ 20 MEQ/15 ML UDCUP PO PRN (12:00)
[2024-12-18] MEDS ORDERED: PoTASSium chloRIDE 20MEQ ER 20 MEQ ERTAB PO PRN (12:00)
[2024-12-18] MEDS ORDERED: CYCLOBENZAPRINE HCL 10 MG TABLET PO PRN (12:00)
--- NOTE | 2024-12-18 13:10 | NUR ---
PT ARRIVED VIA BED. AOX3. C/O PAIN TO RLE. DAUGHTER AT BEDSIDE. ICE PACKS PROVIDED. STRONG PEDAL PULSE.
--- NOTE | 2024-12-18 13:15 | NUR ---
ORTHO COORDINATOR: PRIMARY NURSE AT BEDSIDE PERFORMING ASSESSMENT. ICE PACK TO SURGICAL SITE, B SCD SLEEVES IN PLACE AND FUNCTIONING. PENDING RESPIRATORY VISIT.
[2024-12-18] MEDS: HYDROcodone/APAP 5/325 1 TAB TABLET PO PRN (13:46)
[2024-12-18] MEDS: 0.9%NACL 1000ML 1,000 ML IV SCH (13:47)
[2024-12-18] MEDS: ERGOCALCIFEROL (VITAMIN D2) 50,000 UNIT CAPSULE PO ONE (13:47)
--- NOTE | 2024-12-18 14:30 | NUR ---
Patient required moderate verbal cues and education as to why she is experiencing pain. She reports she has been told she would not have pain. Explained to patient this pain is due to the surgical procedure and will decrease in time. Patient reports she is upset, she would not have had surgery if she knew how much this would hurt. Educated patient to request pain meds with breakfast and lunch so her pain levels would be at a tolerable level to participate with PT. 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 Patient [place] PT recommendations at time of eval is rehab primary with home with HHPT as secondary recommendation.
--- NOTE | 2024-12-18 16:26 | HMCIMG ---
EXAM: CR right Knee, 2 View. CLINICAL HISTORY: S/P RT TKA SURGERY COMPARISON: None provided. FINDINGS: BONES: No acute fracture or aggressive appearing osseous lesion. JOINTS: Right total knee arthroplasty is in near-anatomic alignment. There are appropriate postsurgical changes about the right knee joint. SOFT TISSUES: The soft tissues are unremarkable. IMPRESSION: 1. Right total knee arthroplasty in near-anatomic alignment with appropriate postsurgical changes. 2. No acute findings. /[place]
--- NOTE | 2024-12-18 19:30 | NUR ---
assessment note/education patient awake, alert, ox3, patients daughter at bedside, reinforce is as previously done with maximum volume inspiration 1500, teach patient and family plan of care, pain management and expected outcome, both verbalize understanding via teach back, right knee with ivonne bandage d/i,apply fresh ice back, ble scds in place, call lofton at reach
[2024-12-18] MEDS ORDERED: SALMETEROL IH PRN (23:00)
[2024-12-18] MEDS ORDERED: FLUTICASONE IH PRN (23:00)
[2024-12-19] VITALS: BP 124/64; PULSE 85; RESP 17; TEMP 98.2
[2024-12-19 04:00] VITALS: BP 148/64; PULSE 78; RESP 17; TEMP 97.8
[2024-12-19 05:10] LABS: NUCLEATED RED BLOOD CELLS 0.0 % (0.0-0.19); PLATELET COUNT (AUTO) 228.0 K/uL (130-400); RED BLOOD CELL COUNT(AUTO) 3.5 MIL/uL (4.00-5.50); RED CELL DISTRIBUTION WIDTH 14.3 % (11.0-15.5); WHITE BLOOD COUNT (AUTO) 11.6 K/uL (4.8-10.8)
[2024-12-19 05:24] LABS: CREATININE 0.8 mg/dL (0.5-1.0); GLOMERULAR FILTR. RATE CALC 79.0 mL/min (>90); GLUCOSE,RANDOM 129.0 mg/dL (70-105); SODIUM SERUM 136.0 mmol/L (136-145); UREA NITROGEN, BLOOD 17.0 mg/dL (7-18)
[2024-12-19 08:00] VITALS: O2SAT 94
[2024-12-19 08:21] VITALS: BP 138/72; PULSE 81; RESP 18; TEMP 98
--- NOTE | 2024-12-19 08:21 | PN ---
Ortho POD #1. This morning the patient is currently back in bed. Stated that she was in the chair since about 0430 and then became a bit nauseated and dizzy and was assisted to bed. At present states that those symptoms have subsided. Discussed with the patient that if she feels better I would like for her to try to spend most of her day out of bed in the chair alternating extension and flexion of the knee using a foot stool. She understood. 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 VSS, Afbrile. Laboratory results reviewed. Noted to have a drop in H & H as expected. Will continue to monitor and treat as necessary per protocol. Operative findings discussed with the patient. Voiding on her own without difficulty. pending to pass gas. The ivonne bandage has been removed. The dressing is intact, Negative Zev's. SCD sleves currently not on but available. Ice currently not present but reenforced through out the day. Reenforced IS. She is pending PT this morning. Anticipated d/c goal is HH/PT Assessment: s/p RT TKA Actue post operative blood loss anemia Plan: Continue with Dr. Sepulveda TKA protocol and discharge planning. Acute post operative blood loss anemia address with protocol as necessary Vitals/Labs Vital Signs Date Time Temp Pulse Resp B/P (MAP) Pulse Ox O2 Delivery O2 Flow Rate FiO2 12/19/24 04:00 97.9 78 17 148/64 95 Room Air 12/18/24 20:00 0 21 Laboratory Tests 12/19/24 04:37 Medications Current Medications Cefazolin Sodium 2 gm STK-MED ONCE .ROUTE; Start 12/18/24 at 07:34; Stop 12/18/24 at 07:35; Status DC Lactated Ringer's 1,000 ml @ As Directed STK-MED ONCE IV; Start 12/18/24 at 07:34; Stop 12/18/24 at 07:35; Status DC Ketorolac Tromethamine 30 mg STK-MED ONCE .ROUTE; Start 12/18/24 at 07:43; Stop 12/18/24 at 07:44; Status DC Ropivacaine 150 mg STK-MED ONCE .ROUTE; Start 12/18/24 at 07:44; Stop 12/18/24 at 07:44; Status DC Tranexamic Acid 1,000 mg STK-MED ONCE .ROUTE; Start 12/18/24 at 07:55; Stop 12/18/24 at 07:55; Status DC Lidocaine HCl 100 mg STK-MED ONCE .ROUTE; Start 12/18/24 at 08:01; Stop 12/18/24 at 08:01; Status DC Ondansetron HCl 4 mg STK-MED ONCE .ROUTE; Start 12/18/24 at 08:01; Stop 12/18/24 at 08:01; Status DC Succinylcholine Chloride 200 mg STK-MED ONCE .ROUTE; Start 12/18/24 at 08:01; Stop 12/18/24 at 08:01; Status DC Dexamethasone Sodium Phosphate 10 mg STK-MED ONCE .ROUTE; Start 12/18/24 at 08:01; Stop 12/18/24 at 08:01; Status DC Glycopyrrolate 1 mg STK-MED ONCE .ROUTE; Start 12/18/24 at 08:02; Stop 12/18/24 at 08:02; Status DC Propofol 200 mg STK-MED ONCE IV; Start 12/18/24 at 08:02; Stop 12/18/24 at 08:02; Status DC Neostigmine Methylsulfate 10 mg STK-MED ONCE IV; Start 12/18/24 at 08:02; Stop 12/18/24 at 08:02; Status DC Rocuronium [place] 50 mg STK-MED ONCE .ROUTE; Start 12/18/24 at 08:02; Stop 12/18/24 at 08:02; Status DC Fentanyl Citrate 100 mcg STK-MED ONCE .ROUTE; Start 12/18/24 at 08:03; Stop 12/18/24 at 08:03; Status DC Midazolam HCl 2 mg STK-MED ONCE .ROUTE; Start 12/18/24 at 08:05; Stop 12/18/24 at 08:05; Status DC Ketamine HCl 50 mg STK-MED ONCE .ROUTE; Start 12/18/24 at 08:05; Stop 12/18/24 at 08:06; Status DC Acetaminophen 100 ml @ As Directed STK-MED ONCE .ROUTE; Start 12/18/24 at 08:09; Stop 12/18/24 at 08:09; Status DC Famotidine 20 mg STK-MED ONCE IV; Start 12/18/24 at 08:09; Stop 12/18/24 at 08:10; Status DC Ondansetron HCl 4 mg AD PRN IVP; Start 12/18/24 at 08:30; Stop 12/18/24 at 13:19; Status DC Metoclopramide HCl 10 mg AD PRN IVP; Start 12/18/24 at 08:30; Stop 12/18/24 at 13:19; Status DC Promethazine HCl 25 mg AD PRN IM; Start 12/18/24 at 08:30; Stop 12/18/24 at 13:19; Status DC Ketorolac Tromethamine 30 mg AD PRN IV; Start 12/18/24 at 08:30; Stop 12/18/24 at 13:19; Status DC Morphine Sulfate 2 mg AD PRN IVP; Start 12/18/24 at 08:30; Stop 12/18/24 at 13:19; Status DC Fentanyl Citrate 25 mcg Q5MIN PRN IVP Last administered on 12/18/24at 12:34; Start 12/18/24 at 08:30; Stop 12/18/24 at 13:19; Status DC Naloxone HCl 0.1 mg AD PRN IVP; Start 12/18/24 at 08:30; Stop 12/18/24 at 13:19; Status DC Fentanyl Citrate 100 mcg STK-MED ONCE .ROUTE; Start 12/18/24 at 09:53; Stop 12/18/24 at 09:54; Status DC Ketorolac Tromethamine 30 mg STK-MED ONCE .ROUTE; Start 12/18/24 at 10:04; Stop 12/18/24 at 10:04; Status DC Fentanyl Citrate 100 mcg STK-MED ONCE .ROUTE; Start 12/18/24 at 10:41; Stop 12/18/24 at 10:41; Status DC Sodium Chloride 1,000 ml @ 100 mls/hr Q10H IV Last administered on 12/18/24at 22:08; Start 12/18/24 at 12:00; Stop 12/19/24 at 11:59 Polyethylene Glycol 17 gm DAILY PO; Start 12/19/24 at 09:00; Stop 01/18/25 at 08:59 Bisacodyl 10 mg DAILY PRN RC; Start 12/21/24 at 12:00; Stop 01/20/25 at 11:59 Ketorolac Tromethamine 15 mg Q6H PRN IV; Start 12/19/24 at 12:00; Stop 12/24/24 at 11:59 Ferrous Fumarate 324 mg DAILY PRN PO; Start 12/18/24 at 12:00; Stop 01/17/25 at 11:59 Ondansetron HCl 4 mg Q6H PRN IVP Last administered on 12/19/24at 06:29; Start 12/18/24 at 12:00; Stop 01/17/25 at 11:59 Calcium Carbonate 500 mg Q12H PRN PO; Start 12/18/24 at 12:00; Stop 01/17/25 at 11:59 Cefazolin Sodium 2 gm Q8H IVP Last administered on 12/19/24at 00:21; Start 12/18/24 at 17:00; Stop 12/19/24 at 01:01; Status DC Cyclobenzaprine HCl 5 mg Q8H PRN PO; Start 12/18/24 at 12:00; Stop 01/17/25 at 11:59 Gabapentin 100 mg TID PO Last administered on 12/18/24at 20:05; Start 12/18/24 at 14:00; Stop 01/17/25 at 13:59 Aspirin 325 mg DAILY PO; Start 12/19/24 at 09:00; Stop 01/18/25 at 08:59 Ketorolac Tromethamine 15 mg Q8H IV Last administered on 12/19/24at 04:00; Start 12/18/24 at 12:00; Stop 12/19/24 at 04:01; Status DC Docusate Sodium 100 mg BID PO Last administered on 12/18/24at 20:05; Start 12/18/24 at 21:00; Stop 01/17/25 at 20:59 Potassium Chloride 100 ml @ 100 mls/hr AD PRN IV; Start 12/18/24 at 12:00; Stop 01/17/25 at 11:59 Potassium Chloride 20 meq AD PRN PO; Start 12/18/24 at 12:00; Stop 01/17/25 at 11:59 Potassium Chloride 20 meq AD PRN PO; Start 12/18/24 at 12:00; Stop 01/17/25 at 11:59 Tramadol HCl 50 mg Q6H PRN PO; Start 12/18/24 at 12:00; Stop 12/23/24 at 11:59 Acetaminophen/ Hydrocodone Bitart Q4H PRN PO; Start 12/18/24 at 12:00; Stop 12/18/24 at 12:07; Status DC Pantoprazole Sodium 40 mg DAILY PO; Start 12/19/24 at 09:00; Stop 01/18/25 at 08:59 Ergocalciferol 50,000 unit ONCE ONCE PO Last administered on 12/18/24at 13:47; Start 12/18/24 at 12:00; Stop 12/18/24 at 12:07; Status DC Metoprolol Tartrate 5 mg STK-MED ONCE IV; Start 12/18/24 at 12:04; Stop 12/18/24 at 12:05; Status DC Acetaminophen/ Hydrocodone Bitart 1 tab Q4H PRN PO; Start 12/18/24 at 12:30; Stop 12/23/24 at 12:29 Acetaminophen/ Hydrocodone Bitart 2 tab Q4H PRN PO Last administered on 12/19/24at 05:09; Start 12/18/24 at 12:30; Stop 12/23/24 at 12:29 Hydralazine HCl 20 mg STK-MED ONCE .ROUTE Last administered on 12/18/24at 12:16; Start 12/18/24 at 12:11; Stop 12/18/24 at 12:11; Status DC Fentanyl Citrate 100 mcg STK-MED ONCE .ROUTE; Start 12/18/24 at 12:23; Stop 12/18/24 at 12:23; Status DC Cefazolin Sodium 2 gm STK-MED ONCE IVPB Last administered on 12/18/24at 09:30; Start 12/18/24 at 09:30; Stop 12/18/24 at 12:55; Status DC Tranexamic Acid 1,000 mg STK-MED ONCE IV Last administered on 12/18/24at 09:40; Start 12/18/24 at 09:40; Stop 12/18/24 at 12:55; Status DC Ropivacaine 150 mg STK-MED ONCE IJ Last administered on 12/18/24at 11:30; Start 12/18/24 at 11:30; Stop 12/18/24 at 12:55; Status DC Ketorolac Tromethamine 30 mg STK-MED ONCE IJ Last administered on 12/18/24at 11:30; Start 12/18/24 at 11:30; Stop 12/18/24 at 12:55; Status DC Tranexamic Acid 1,000 mg STK-MED ONCE IV Last administered on 12/18/24at 11:55; Start 12/18/24 at 11:55; Stop 12/18/24 at 12:55; Status DC Ketorolac Tromethamine 15 mg STK-MED ONCE .ROUTE; Start 12/18/24 at 12:53; Stop 12/18/24 at 12:53; Status DC Metronidazole 500 mg BID PO; Start 12/19/24 at 09:00; Stop 12/29/24 at 08:59 Sennosides 1 tab DAILY PO; Start 12/19/24 at 09:00; Stop 01/18/25 at 08:59 Home Med QODAY PO; Start 12/19/24 at 09:00; Stop 12/21/24 at 09:01 Home Med Fluticasone/ Salmeterol (Adv... Q12H PRN IH; Start 12/18/24 at 23:00; Stop 01/17/25 at 22:59 YAIMLE LOPEZ [facility] Dec 19, 2024 08:21
[2024-12-19] MEDS: SENNOSIDES 8.6 MG TABLET PO SCH (09:00)
[2024-12-19] MEDS: HOME MEDICATION 1 EACH PO SCH (09:00)
[2024-12-19] MEDS: HYDROcodone/APAP 5/325 1 TAB TABLET PO PRN (09:00)
[2024-12-19] MEDS: ASPIRIN 325MG EC TAB PO SCH (09:00)
--- NOTE | 2024-12-19 09:00 | NUR ---
MUSCLE CRAMPS During morning assessment, patient complained of muscle cramps. Flexiril offered to patient and she refused. During morning medication round passed, medication offered once again. Patient refused.
--- NOTE | 2024-12-19 09:08 | NUR ---
NURSING NOTE: PAIN, PLAN OF CARE, EDUCATION Nurse spent 30 minutes at bedside reviewing patient medications and indications for use. Patient refused medications stating that she only wanted her home medications. Reviewed list of home medications entered for review. Among that list, patient stated she only wanted to take her antibiotic (flagyl), and medicine for pain. Further explanation and reinforcement of prescribed, scheduled medications ordered by Dr. Sepulveda was performed. Patient refuses all medications with exception of flagyl and [place] 5/325 (1 tab). Will continue to monitor and reassess pain level within one hour time frame. Patient advised to notify nurse if pain is unrelieved or gets worse. Verbalized understanding. Ice pack in place to right knee. Incision is clean and dry. IS at bedside with max volume of 1500. Patient to shower today. Physical therapy anticipated within an hour.
--- NOTE | 2024-12-19 09:24 | NUR ---
Patient requested to have her breakfast before receiving medications. Encouraged to call once complete. Nurse will continue to check in with patient . Addendum: 12/19/24 at 0903 by JENNY JEFFRIES RN RN Amended: Links added.
[2024-12-19 12:00] VITALS: BP 127/57; PULSE 79; RESP 20; TEMP 97.9
--- NOTE | 2024-12-19 12:55 | NUR ---
PAIN REASSESSMENT Pain reassessment 1 hour after receiving Toradol at approximately 12:15pm performed. Prior to entering patient room, PUBLICATIONS EDITOR was exiting reporting that patient is complaining of pain. Nurse entered room and asked patient location and strength of pain. Patient then stated that she did not have any pain right now. Stated she had pain earlier, but it has gone away. Stated that she wanted to get pain medication when she was having pain, not when she was not having pain. Nurse then repeated back to clarify that patient was reporting no pain, 1/10 pain level at this time. Patient confirmed and once again said, she had pain, but it is gone now. Then patient asked for pain medication. Nurse questioned pain level so that appropriate medication would be administered to match level of pain. Patient became upset and stated, just put 10. My pain is a 10. Charge nurse notified. Will administer pain medication to cover pain level reported. Addendum: 12/19/24 at 1314 by JENNY JEFFRIES RN RN Charge nurse reported to bedside to speak with patient regarding pain management, time intervals between prn medications, and prn pain medication available. Patient reported pain at 8/10. Will administer prn pain medication to cover this level of pain.
--- NOTE | 2024-12-19 13:15 | NUR ---
ORTHO COORDINATOR: TEACHING REGARDING DVT AND PNEUMONIA PREVENTION, PAIN EXPECTATIONS AND PAIN MANAGEMENT. PATIENT IN BED, LIGHTS OFF. B SCD SLEEVES IN PLACE AND FUNCTIONING. INCENTIVE SPIROMETER ON BEDSIDE TRAY. DRESSING TO RIGHT KNEE CLEAN DRY AND INTACT. AREA BRUISED AND SWOLLEN. ICE PACK REFILLED AND APPLIED TO SITE, PATIENT REMOVED. PATIENT BELARUSIAN SPEAKING ONLY. HOSPITAL LACQUER SPRAY BOOTH OPERATOR BROUGHT TO BEDSIDE. LACQUER SPRAY BOOTH OPERATOR USED. LIGHTS TURNED ON. NUMERIC PAIN SCORE REVIEW. PAIN MANAGEMENT STRATEGY REVIEWED. PRIMARY NURSE HAS PAIN MEDICATIONS ADMINISTERED AND TIMES OF LAST DOSE RECORDED ON PATIENT WHITE BOARD. MEDICATIONS REVIEWED. ICE PACK PLACED TO RIGHT KNEE, IMPORTANCE OF ICING REVIEWED WITH PATIENT. PATIENT REPORTS THROAT FEELS SCRATCHY, HAS NOT COMMUNICATED ISSUE WITH NURSES. PATIENT INCORRECTLY RETURN DEMONSTRATED USE OF INCENTIVE SPIROMETER, REDIRECTION PROVIDED. PATIENT RETURN DEMONSTRATED PROPER TECHNIQUE AND VERBALIZED PROPER FREQUENCY OF USE. RATIONALE PATIENT RETURN DEMONSTRATED PROPER FOOT FLEXION AND EXTENSION EXERCISE, RATIONALE PROVIDED. PATIENT DESIRES TO DISCHARGE HOME WITH HOME HEALTH PHYSICAL THERAPY. HOME HEALTH PHYSICAL THERAPY PROCESS EXPLAINED. SET EXPECTATION FOR PATIENT TO SHOWER, RATIONALE PROVIDED. PATIENT DECLINES. STATES SHE IS A HEAD OF ENGLISH, WILL ASSIST AT HOME. ENCOURAGE PATIENT TO CONTINUE PREMEDICATE PRIOR TO PHYSICAL THERAPY AND PERIODS OF HIGH ACTIVITY, TO CONTINUE INCENTIVE SPIROMETER UNTIL PRESURGERY ACTIVITY LEVELS RESUME, TO CONTINUE FOOT FLEXION AND EXTENSION EXERCISES, TO AMBULATE, ICE KNEE AND HYDRATE. PATIENT VERBALIZED UNDERSTANDING TO ALL INSTRUCTIONS. PATIENT ENCOURAGED TO GET UP TO CHAIR AND REMAIN IN CHAIR.
--- NOTE | 2024-12-19 14:30 | NUR ---
PAIN REASSESSMENT, MUSCLE CRAMPS During pain reassessment, patient reported 0/10 pain, however complains of muscle cramps again. Offered flexirl once more, and patient once again refused. Scheduled Gabapentin administered. Will continue to monitor.
--- NOTE | 2024-12-19 14:43 | NUR ---
DC PLAN PATIENT ACCEPTED TO [facility]. HAVING PAIN WITH AMBULATION. MD AND NURSE AWARE OF ACCEPTANCE.
--- NOTE | 2024-12-19 15:20 | NUR ---
ORTHO COORDINATOR: PATIENT REFUSED AFTERNOON PHYSICAL THERAPY SESSION. PATIENT IN BED, LIGHTS IN ROOM OUT. HOSPITAL BOX STRAPPER BROUGHT TO BEDSIDE. LIGHT TURNED ON. PATIENT REPORTED WAS IN TOO MUCH PAIN TO COMPLETE PHYSICAL THERAPY. PATIENT EXPRESSES DESIRE TO BOX STRAPPER TO DISCHARGE HOME AND EXPRESSES SHE WILL MOVE MORE ONCE DISCHARGED TO HOME. VOICED CONCERNS ABOUT DISCHARGING PATIENT HOME IF PAIN WAS UNCONTROLLED. PATIENT VOICED THAT PAIN WAS NOT THE ISSUE, SHE FEELS DROWSY FROM THE MEDICATION. AGREED TO PARTICIPATE IN PHYSICAL THERAPY. 1530. REPORT TO PHYSICAL THERAPIST.
--- NOTE | 2024-12-19 15:55 | NUR ---
PAIN REASSESSMENT, MEDICATION REFUSAL Patient reports zero pain. Returned from ambulating larios with physical therapy down hallway. Second attempt to administer Calcium replacement for level of 7.8. Patient was previously in agreement to receive with next scheduled pain assessment, pain medication. Patient refused calcium. States she doesn't want to take any more pills.
[2024-12-19 16:00] VITALS: BP 142/75; PULSE 75; RESP 19; TEMP 98
[2024-12-19] MEDS ORDERED: DOCU-116 PO (17:08)
[2024-12-19] MEDS ORDERED: HYDR-4060 PO (17:08)
[2024-12-19] MEDS ORDERED: PANT40TA PO (17:08)
[2024-12-19] MEDS ORDERED: ASPI-891 PO (17:08)
[2024-12-19] MEDS ORDERED: CHOL2000 PO (17:08)
[2024-12-19] MEDS ORDERED: GABA100C PO (17:08)
[2024-12-19] MEDS ORDERED: CYCL-309 PO (17:08)
--- NOTE | 2024-12-19 17:35 | NUR ---
[facility] TO GIVE REPORT Phone call received by [employer] [facility] [employer] [facility] employee. Demographics, reason for hospitalization and reason for home health services provided. [facility] employee will contact nurse to call back for report. Phone number provided for call back:
--- NOTE | 2024-12-19 18:45 | NUR ---
REPORT: [facility] with [facility] returned phone call. Delay was due to nurse being at patient visit. Report given with discharge instructions, medications prescribed, pharmacy where medications are to be picked up, dressing removal date, care of wound, and follow up appointment date.
--- NOTE | 2024-12-19 19:50 | NUR ---
discharge discharge home via wheelchair accompanied by patients daughter, personal belonging and home medications locked up in pharmacy with patient , dressing optifoam right knee d/, no complaints at this time
== END 2024-12-19 19:50 | disposition home health service (06) ==
LOC: DAH 06:57 → DAHIP 06:58 → 4CH 13:10
PROVIDERS: ADMIT Student in an Organized Health Care Education/Training Program; ATTEND Student in an Organized Health Care Education/Training Program
DX: M17.11 Unilateral primary osteoarthritis, right knee (principal); M25.561 Pain in right knee; I10 Essential (primary) hypertension; R79.1 Abnormal coagulation profile; Z79.899 Other long term (current) drug therapy; Z98.890 Other specified postprocedural states
CPT/HCPCS: 85025; 85610; 85730; 84134; 86140; 36415 ×2; 93005; 87641; 27447; 96374; 96376 ×2; 96375; 73560; 97161; 97530 ×2; 80048; 85027; 97116 ×2; G0378 ×32; A4223 ×2; A4663; J7120; J1308; J3010 ×4; J3490 ×7; J1100; J0330; J2003; J0360; J2250; J2704; J2405 ×3; J1885 ×7; J2710; J2795 ×2; J0690 ×4; C1776 ×2; A4649 ×2; A4930 ×2; C1713; A6255; A4215; A4213; A4222; A4221; A4216

== ENCOUNTER 2024-12-19 23:40 | Observation (INO) | payer MEDICARE ==
[~2024-12-19] VITALS: Ht 147.3 cm; Wt 71.6 kg
[~2024-12-19 23:40] MED LIST changes: +ASPI-891 PO; +CHOL2000 PO; +CYCL-309 PO; +DOCU-116 PO; +GABA100C PO; +HYDR-4060 PO; +PANT40TA PO
[2024-12-20] VITALS (9 sets, daily range): BP systolic 132–145; BP diastolic 65–76; PULSE 77–84; RESP 18–20; TEMP 97.9–98.1; O2SAT 96–99
[2024-12-20 00:05] LABS: NUCLEATED RED BLOOD CELLS 0.0 % (0.0-0.19); PLATELET COUNT (AUTO) 223 K/uL (130-400); RED BLOOD CELL COUNT(AUTO) 3.51 MIL/uL (4.00-5.50); RED CELL DISTRIBUTION WIDTH 14.2 % (11.0-15.5); WHITE BLOOD COUNT (AUTO) 10.8 K/uL (4.8-10.8)
--- NOTE | 2024-12-20 00:07 | ERN ---
ED Note History of Present Illness Stated Complaint: KNEE PAIN S/P SURGERY Chief Complaint: Knee Injury/Swelling Time Seen by MD: 23:44 Dictation: 69-year-old lady with no past medical history underwent total knee arthroplasty earlier today that was discharged from this facility although was unable to get pain medications prior to arrival. Patient is hemodynamically stable at this time vital signs include Allergies: Coded Allergies: No Known Drug Allergies (Unverified Allergy, Unknown, 04/23/20) No Known Food Allergies (Unverified Allergy, Unknown, 04/23/20) Home Meds Active Scripts Cholecalciferol (Vitamin D3) (Vitamin D3) 50 Mcg (2000 Unit) Capsule, 1 CAP PO DAILY for 30 Days, #30 CAP 0 Refills Prov:KIM CODY MD 12/19/24 Pantoprazole Sodium (Protonix) 40 Mg Tablet., 40 MG PO DAILY, #30 TAB 0 Refills Prov:KIM CODY MD 12/19/24 Docusate Sodium (Colace) 100 Mg Capsule, 1 CAP PO BID for 30 Days, #60 CAP 0 Refills Prov:KIM CODY MD 12/19/24 Hydrocodone/Acetaminophen (Hydrocodon-Acetaminophen 5-325) 5 Mg-325 Mg Tablet, 1-2 TAB PO Q6HPRN PRN for MODERATE PAIN (4-6), #56 TAB 0 Refills Prov:KIM CODY MD 12/19/24 Gabapentin (Neurontin) 100 Mg Capsule, 100 MG PO TID, #90 CAP 0 Refills Prov:KIM CODY MD 12/19/24 Cyclobenzaprine HCl (Cyclobenzaprine HCl) 10 Mg Tablet, 5 MG PO Q8H PRN for MUSCLE SPASMS, #45 TAB 0 Refills Prov:KIM CODY MD 12/19/24 Aspirin (Aspirin EC) 325 Mg Tablet., 325 MG PO DAILY, #30 TAB 0 Refills Prov:KIM CODY MD 12/19/24 Reported Medications Fluticasone/Salmeterol (ADVAIR 250-50 DISKUS) 14 Inh/Disk Inh, 1 PUFF IH BID PRN for SHORTNESS OF BREATH, INHALER 12/17/24 Fluconazole (Fluconazole) 150 Mg Tablet, 150 MG PO QODAY, TAB X 5 DAYS ( STARTED 12/11/24) 12/17/24 Metronidazole (Metronidazole) 500 Mg Tablet, 500 MG PO BID, TAB X 10 DAYS (STARTED 12/11/24) 12/17/24 Sennosides (Senna) 8.6 Mg Tablet, 8.6 MG PO DAILY, TAB 12/17/24 Discontinued Reported Medications Trazodone HCl (Desyrel) 50 Mg Tab, 1-2 TAB PO HS 04/22/20 Dicyclomine HCl (Bentyl) 20 Mg Tab, 1 TAB PO TID PRN for ABDOMINAL PAIN 04/22/20 Cetirizine HCl (Zyrtec) 10 Mg Capsule, 10 MG PO AM, CAP 07/19/18 Glucosamine/D3/Boswellia Roz (Osteo Bi-Flex Caplet) 1 Each Tablet, 1 EACH PO AM, TAB 07/19/18 Fluticasone/Salmeterol (Advair 250-50 Diskus) 1 Each Blst.w.dev, 1 EACH IH HS PRN for SHORTNESS OF BREATH/WHEEZING 05/19/15 Ibuprofen (Advil) 200 Mg Capsule, 200 MG PO Q4-6 H PRN for MILD PAIN (1-3), CAP 08/20/14 Discontinued Scripts Loratadine (Loratadine) 10 Mg Tablet, 1 TAB PO DAILY for allergy symptoms for 30 Days, #30 TAB 0 Refills Prov:JOHN SAMS MD 10/25/24 Sodium Chloride ([place] Saline) 0.65 % Drops, 2 DROP NS QID, #50 ML 0 Refills Prov:JOHN SAMS MD 10/25/24 Topiramate (Topamax) 25 Mg Tablet, 25 MG PO DAILYDINNER, #30 TAB 2 Refills Prov:MACKENZIE GROSS Sr., MD 02/09/23 Cephalexin Monohydrate (Keflex) 500 Mg Cap, 500 MG PO QID for 7 Days, #28 CAP 0 Refills Prov:MACKENZIE GROSS Sr., MD 02/09/23 Hydroxyzine HCl (Atarax) 25 Mg Tab, 25 MG PO QID for ITCHINESS, #30 TAB Prov:PATRICIA MILLER MD 11/20/21 Methylprednisolone (Medrol) 4 Mg Tab.ds.pk, 4 MG PO AD for 5 Days, #1 KIT Prov:PATRICIA MILLER MD 11/20/21 Azithromycin (Zithromax) 250 Mg Tablet, 250 MG PO DAILY for 4 Days, #4 TAB 0 Refills Prov:SILVIANO GOEL MD 06/14/21 Prednisone (Prednisone) 20 Mg Tablet, 1 TAB PO AD for 6 Days, #14 TAB 0 Refills TAKE 1 TAB BY MOUTH THREE TIMES PER DAY X3 DAYS, THEN TAKE 1 TAB BY MOUTH TWICE A DAY X2 DAYS, THEN TAKE 1 TAB BY MOUTH ONCE A DAY X1 DAY. Prov:SILVIANO GOEL MD 06/14/21 Benzonatate (Tessalon Perles) 100 Mg Cap, 100 MG PO TID PRN for COUGH, #30 CAP 0 Refills Prov:SILVIANO GOEL MD 06/14/21 Past Medical History Past Medical History: No Pertinent History Surgical History: Other Surgical History Other: ABDOMINAL Social History: Negative, Lives with family History: Not Applicable Initial Vital Sign VS Vital Signs Date Time Temp Pulse Resp B/P (MAP) Pulse Ox O2 Delivery O2 Flow Rate FiO2 12/19/24 23:43 98.1 98 16 153/73 99 Room Air 0 12/19/24 23:59 21 Physical Exam Dictation Initial vital signs include Tmax is 98.1. Pulse 92. Respiratory rate of 17, blood pressure 132/68 and pulse ox 98% on room air Results (Laboratory/Radiology) Laboratory/Radiology Laboratory Tests Test 12/19/24 23:55 White Blood Count 10.8 K/uL (4.8-10.8) Red Blood Count 3.51 MIL/uL (4.00-5.50) L Hemoglobin 9.7 g/dL (12.0-16.0) L Hematocrit 31.7 % (36-48) L Mean Corpuscular Volume 90.3 fL (79-99) Mean Corpuscular Hemoglobin 27.6 pg (27.0-33.0) Mean Corpuscular Hemoglobin Concent 30.6 g/dL (32.0-36.0) L Red Cell Distribution Width 14.2 % (11.0-15.5) Platelet Count 223 K/uL (130-400) Mean Platelet Volume 9.8 fL (7.5-10.5) Immature Granulocyte % (Auto) 1.2 % (0-1) H Neutrophils (%) (Auto) 70.2 % (40.0-77.0) Lymphocytes (%) (Auto) 17.1 % (21.0-51.0) L Monocytes (%) (Auto) 10.7 % (3.0-13.0) Eosinophils (%) (Auto) 0.3 % (0.0-8.0) Basophils (%) (Auto) 0.5 % (0.0-5.0) Neutrophils # (Auto) 7.7 K/uL (1.8-7.7) Lymphocytes # (Auto) 1.9 K/uL (1.0-4.8) Monocytes # (Auto) 1.2 K/uL (0.1-1.0) H Eosinophils # (Auto) 0.03 K/uL (0.00-0.70) Basophils # (Auto) 0.05 K/uL (0.00-0.20) Absolute Immature Granulocyte (auto 0.13 K/uL (0-1) Nucleated Red Blood Cells 0.0 % (0.0-0.19) Erythrocyte Sedimentation Rate 33 MM/HR (0-30) H Sodium Level 137 mmol/L (136-145) Potassium Level 3.5 mmol/L (3.5-5.1) Chloride Level 100 mmol/L (101-111) L Carbon Dioxide Level 27 mmol/L (21-32) Blood Urea Nitrogen 19 mg/dL (7-18) H Creatinine 0.7 mg/dL (0.5-1.0) Glomerular Filtration Rate Calc 92 mL/min (>90) Random Glucose 111 mg/dL (70-105) H Total Calcium 8.1 mg/dL (8.5-10.1) L Total Bilirubin 0.4 mg/dL (0.2-1.0) Aspartate Amino Transf (AST/SGOT) 22 U/L (10-37) Alanine Aminotransferase (ALT/SGPT) 27 U/L (12-78) Alkaline Phosphatase 80 U/L (50-136) C-Reactive Protein, Quantitative 56.10 mg/L (0.5-3.0) H Total Protein 6.7 g/dL (6.0-8.3) Albumin 3.3 g/dL (3.5-5.0) L X-RAY Comment: [place] [id number] [address] IMAGING REPORT Signed PATIENT: ALEX BELLA I MR#: [id number] : 1955 SEX: F AGE: 69 LOCATION: [facility] ORDER 56 STATUS: REG ER REPORT#: [id number] SERVICE 51 REASON: pain and swelling ORDERING PHYSICIAN: DELPHINE THAO MD PROCEDURE: KNEE 3V RT - KNEE 3VWS RT EXAM: CR Right Knee, 3 views CLINICAL HISTORY: Pain. Swelling. COMPARISON: 12/18/2024. FINDINGS: No acute fracture or aggressive appearing osseous lesion. Total knee joint replacement prosthesis in place, no evidence of hardware failure. Redemonstrated soft tissue emphysema and swelling around the anterior aspect of the knee. Interval reduction in the previously noted air pocket around the suprapatellar recess. IMPRESSION: No acute bony abnormality is evident. Total knee joint replacement prosthesis in place, no evidence of hardware failure. Redemonstrated soft tissue emphysema and swelling around the anterior aspect of the knee. /[place] DICTATED BY: JOSHUA SNEED Jr., MD DATE: 12/20/24199 ELECTRONICALLY SIGNED BY: JOSHUA SNEED Jr., MD DATE: 12/20/24199 ED Course ED Course Orders Procedure Category Date Status Time Comprehensive LAB 12/19/24 Complete Metabolic Panel 23:52 Knee 3vws Rt RAD 12/19/24 Resulted 23:52 Crp Quantitative LAB 12/19/24 Complete 23:52 Erythrocyte Sed Rate LAB 12/19/24 Complete 23:52 Us Venous Doppler US 12/19/24 Resulted Unilateral 23:52 Morphine 4mg Syg PHA 12/20/24 Complete (Morphine 4mg Syg) 00:00 Ketorolac PHA 12/20/24 Complete Tromethamine 15mg/Ml 00:00 Cbc With Differential LAB 12/19/24 Complete 23:55 Hydrocodone/Apap PHA 12/20/24 Complete 5/325 ([place] 5/325mg) 01:00 Dexamethasone 4mg/Ml PHA 12/20/24 Complete 1ml Vial (Dexametha 01:00 Current Medications Medications (Trade) Dose Ordered Sig/[place] Route PRN Reason Start Time Stop Time Status Last Admin Dose Admin Acetaminophen/ Hydrocodone Bitart (NORco 5/325MG) 1 tab ONCE ONCE PO 12/20/24 01:00 12/20/24 01:26 DC 12/20/24 01:30 Dexamethasone Sodium Phosphate (dexaMETHasone 4MG/ML 1ML VIAL) 6 mg ONCE ONCE IVP 12/20/24 01:00 12/20/24 01:26 DC 12/20/24 01:30 Ketorolac Tromethamine (toRADol) 15 mg ONCE ONCE IV 12/20/24 00:00 12/20/24 00:01 DC 12/20/24 00:15 Morphine Sulfate (morPHINE 4MG SYG) 4 mg ONCE ONCE IVP 12/20/24 00:00 12/20/24 00:01 DC 12/20/24 00:15 Vital Signs Date Time Temp Pulse Resp B/P (MAP) Pulse Ox O2 Delivery O2 Flow Rate FiO2 12/19/24 23:59 98.8 92 17 132/68 98 Room Air* 0 21 12/19/24 23:43 98.1 98 16 153/73 99 Room Air 0 Medical Decision Making MDM Patient is a post of right total knee arthroplasty earlier today presenting with pain and swelling of the operative knee. Exam shows moderate diffuse periarticular swelling and more consistent with postoperative changes. Incision appears clean dry and intact. No erythema extending beyond the incision. No drainage calf tenderness or neurovascular compromise. Vitals are stable with mild tachycardia. Presentation was called consistent with expected postsurgical inflammation. No current evidence of DVT, cellulitis, early prosthetic joint infection. Most likely plan and follow up as ice elevation uncertain scheduled by analgesia. Monitor for warning signs such as fever, drainage, escalating feeding. Redness beyond the incision in to bear weight. Follow up with the orthopedic surgeon like 48-72 hours postop DX & DISP Disposition: Inpatient Departure Impression: Primary Impression: Painful total knee replacement, right Additional Impression: Intractable pain Condition: Stable Referrals: ISAMAR NEIL (PCP) DELPHINE THAO MD Dec 20, 2024 00:07
[2024-12-20 00:13] LABS: CREATININE 0.7 mg/dL (0.5-1.0); GLOMERULAR FILTR. RATE CALC 92.0 mL/min (>90); GLUCOSE,RANDOM 111.0 mg/dL (70-105); SODIUM SERUM 137.0 mmol/L (136-145); UREA NITROGEN, BLOOD 19.0 mg/dL (7-18)
[2024-12-20 00:18] LABS: ASPARTATE AMINOTRANSFERASE 22.0 U/L (10-37); TOTAL PROTEIN, SERUM 6.7 g/dL (6.0-8.3)
[2024-12-20 00:19] LABS: ERYTHROCYTE SEDIMENTATION RATE 33 MM/HR (0-30)
[2024-12-20 00:36] LABS: IMMATURE GRANULOCYTE ABSOLUTE 0.13 K/uL (0-1)
--- NOTE | 2024-12-20 01:00 | HMCIMG ---
EXAM: CR Right Knee, 3 views CLINICAL HISTORY: Pain. Swelling. COMPARISON: 12/18/2024. FINDINGS: No acute fracture or aggressive appearing osseous lesion. Total knee joint replacement prosthesis in place, no evidence of hardware failure. Redemonstrated soft tissue emphysema and swelling around the anterior aspect of the knee. Interval reduction in the previously noted air pocket around the suprapatellar recess. IMPRESSION: No acute bony abnormality is evident. Total knee joint replacement prosthesis in place, no evidence of hardware failure. Redemonstrated soft tissue emphysema and swelling around the anterior aspect of the knee. /[place]
[2024-12-20] MEDS: HYDROcodone/APAP 5/325 1 TAB TABLET PO ONE (01:30)
--- NOTE | 2024-12-20 01:39 | HMCIMG ---
EXAM: US for Deep Venous Thrombosis, right lower extremity. CLINICAL HISTORY: Swelling. Rule out deep venous thrombosis. TECHNIQUE: Real-time ultrasound scan of the veins of the right lower extremity with color Doppler flow, spectral waveform analysis and compression. COMPARISON: None provided. FINDINGS: DEEP VEINS: The common femoral, superficial femoral, and popliteal veins are echolucent and compressible. There is normal color Doppler flow throughout. The visualized calf veins appear patent. IMPRESSION: No deep venous thrombosis is evident on right lower extremity examination. /[place]
--- NOTE | 2024-12-20 02:28 | HP ---
History of Present Illness Reason for Visit: Leg pain History of Present Illness Ms. Golden is a 69-year-old female that was seen and examined today on 12/20/2024. Patient is a good historian of personal health. Patient states that she came to the emergency department with a chief complaint of knee pain. Onset was 12/21/2024. Location is right knee. Duration is constant. Character is described as sharp. There was a is no alleviating factors. Symptoms are aggravated with physical therapy given at home. Patient denies any associated numbness or tingling. Today in the emergency department labs unremarkable, diagnostic radiology shows postoperative changes of the right knee. Emergency room physician recommended patient be admitted with a diagnosis of intractable right knee pain so she could be evaluated by orthopedic service. Past Medical History Patient History: Cancer MOTHER, , Cause: Cancer No Family History of: Alzheimer's disease Asthma Carcinomas Cardiovascular disease Chronic obstructive lung disease Chronic obstructive pulmonary disease Completed stroke Diabetes mellitus Family history: Alzheimer's disease Family history: Asthma Family history: Cardiovascular disease Family history: Diabetes mellitus Family history: Hypertension Hypertension Immunocompromised state Parkinson's disease Stroke Sudden Sudden ADDITIONAL PAST MEDICAL HISTORY: [] Asthma SOCIAL HISTORY: [Patient smokes five cigarettes daily. Patient denies alcohol use. Patient denies drug use. Patient lives alone. Patient is typically independent of all her ADLs. Patient denies difficulty paying her bills.] SURGICAL HISTORY: [Right total knee arthroplasty on 12/19/2024, colovesicular fistula repair] Review of Systems General: No Fever, No Chills, No Night Sweats, No Fatigue, No Malaise, No Appetite, No Other HEENT: No Head Aches, No Visual Changes, No Eye Pain, No Ear Pain, No Dysphasia, No Sinus Congestion, No Post Nasal Drip, No Sore Throat, No Other Pulmonary: No Dyspnea, No Cough, No Pleuritic Chest Pain, No Other Cardiovascular: No: Chest Pain, Palpitations, Orthopnea, Paroxysmal Noc. Dyspnea, Edema, Lt Headedness, Other Gastrointestinal: No: Nausea, Vomiting, Abdominal Pain, Diarrhea, Constipation, Melena, Hematochezia, Other Genitourinary: No Dysuria, No Frequency, No Incontinence, No Hematuria, No Retention, No Other Musculoskeletal: leg pain; No: other, neck pain, shoulder pain, arm pain, back pain, hand pain, foot pain Skin: No Urticaria, No Rash, No Other Neurological: No: Weakness, Numbness, Incoordination, Change in speech, Confusion, Seizures, Other Allergies: Coded Allergies: No Known Drug Allergies (Unverified Allergy, Unknown, 04/23/20) No Known Food Allergies (Unverified Allergy, Unknown, 04/23/20) Scheduled Aspirin (Aspirin EC), 325 MG PO DAILY Cholecalciferol (Vitamin D3) (Vitamin D3), 1 CAP PO DAILY Docusate Sodium (Colace), 1 CAP PO BID Fluconazole (Fluconazole), 150 MG PO QODAY, (Reported) Gabapentin (Neurontin), 100 MG PO TID Metronidazole (Metronidazole), 500 MG PO BID, (Reported) Pantoprazole Sodium (Protonix), 40 MG PO DAILY Sennosides (Senna), 8.6 MG PO DAILY, (Reported) Scheduled PRN Cyclobenzaprine HCl (Cyclobenzaprine HCl), 5 MG PO Q8H PRN for MUSCLE SPASMS Fluticasone/Salmeterol (Advair 250-50 Diskus), 1 PUFF IH BID PRN for SHORTNESS OF BREATH, (Reported) Hydrocodone/Acetaminophen (Hydrocodon-Acetaminophen 5-325), 1-2 TAB PO Q6HPRN PRN for MODERATE PAIN (4-6) Discontinued Medications Azithromycin (Zithromax), 250 MG PO DAILY Benzonatate (Tessalon Perles), 100 MG PO TID PRN for COUGH Cephalexin Monohydrate (Keflex), 500 MG PO QID Cetirizine HCl (Zyrtec), 10 MG PO AM, (Reported) Dicyclomine HCl (Bentyl), 1 TAB PO TID PRN for ABDOMINAL PAIN, (Reported) Fluticasone/Salmeterol (Advair 250-50 Diskus), 1 EACH IH HS PRN for SHORTNESS OF BREATH/WHEEZING, (Reported) Glucosamine/D3/Boswellia Roz (Osteo Bi-Flex Caplet), 1 EACH PO AM, (Reported) Hydroxyzine HCl (Atarax), 25 MG PO QID Ibuprofen (Advil), 200 MG PO Q4-6 H PRN for MILD PAIN (1-3), (Reported) Loratadine (Loratadine), 1 TAB PO DAILY Methylprednisolone (Medrol), 4 MG PO AD Prednisone (Prednisone), 1 TAB PO AD Sodium Chloride ([place] Saline), 2 DROP NS QID Topiramate (Topamax), 25 MG PO DAILYDINNER Trazodone HCl (Desyrel), 1-2 TAB PO HS, (Reported) Exam Vital Signs Vital Signs Date Time Temp Pulse Resp B/P (MAP) Pulse Ox O2 Delivery O2 Flow Rate FiO2 12/19/24 23:59 98.8 92 17 132/68 98 Room Air* 0 21 General Appearance: Alert, Oriented X3, Cooperative, mild distress HEENT: Atraumatic, EOMI, Mucous membr. moist/pink Respiratory: Clear to auscultation, Normal air movement, NL respiratory effort Cardiovascular: Regular rate, Regular rhythm, Normal S1, Normal S2 Abdominal: Normal bowel sounds, Soft, No tenderness Extremities: No edema Skin: Other (Well-approximated surgical incision to right knee) Neuro: Normal speech, Strength at 5/5 X4 ext, Sensation intact, Cranial nerves 3-12 NL Psych/Mental Status: Mental status NL, Mood NL, Thoughts/Content NL Assessment/Plan ASSESSMENT: [ Intractable right knee pain, POA Status post right total knee arthroplasty on 12/19/2024 Asthma] PLAN: [ Admit patient to medical floor as inpatient status. Patient will be followed by orthopedic service. As needed analgesia with morphine. Neurovascular checks every 4 hours. Physical therapy for evaluation and treatment. As-needed albuterol treatments nebulized 2.5 mg for any shortness of breath or wheezing GI prophylaxis, famotidine DVT prophylaxis, Lovenox ADVANCED CARE PLANNING 1. Which of the following were discussed? Hospice Care - Yes Therapeutic options - yes Advance Directives - Yes - patient states he does not have any advance directives in place at this time, however her daughter Annalise Watson can make decisions for her if she becomes unable. Other discussions -patient wishes to remain a full code 2. Discussed with who? Patient 3. Voluntary nature of this service was explained to the patient? Yes 4. Amount of time spent - ___16 minutes____ 5. Reviewed by Physician? (if this service was performed by NPP) Yes This document was generated in part using voice recognition software, occasional wrong word or sound alike substitutions may have occurred due to the inherent limitations of voice recognition software. Read the chart carefully and recognize using context, where the substitutions have occurred. Although every effort was made to edit the content, minute clerk and typing errors may occur ATTESTATION BY PHYSICIAN I have seen and examined the patient. I reviewed the documentation, medical decision making, and treatment plan as noted by the mid-level provider above. I agree with the findings and plan of care.] JAMIL GUEVARA [facility] Dec 20, 2024 02:28
[2024-12-20] MEDS ORDERED: LACTULOSE 20 GM/30 ML UDCUP PO PRN (03:00)
--- NOTE | 2024-12-20 03:23 | NUR ---
ORTHO VS LYING- 143/54 SIT- 156/66 STAND-155/54
--- NOTE | 2024-12-20 03:24 | NUR ---
PT POND SAWYER HANDED TO PATIENT- SHE FORGOT IT YESTERDAY
[2024-12-20 03:33] LABS: APPEARANCE,URINE CLEAR (CLEAR); GLUCOSE, URINE (UA) NEGATIVE (NEGATIVE); LEUKOCYTE ESTERASE ,URINE 75 Leu/uL (NEGATIVE); NITRATE,URINE NEGATIVE (NEGATIVE); OCCULT BLOOD,URINE NEGATIVE (NEGATIVE)
[2024-12-20 03:34] LABS: ADD UA MICROSCOPIC YES
[2024-12-20 03:35] LABS: SQUAMOUS EPITHELIAL CELL,UR RARE /HPF (0-2)
[2024-12-20 05:53] LABS: IMMATURE GRANULOCYTE ABSOLUTE 0.17 K/uL (0-1); NUCLEATED RED BLOOD CELLS 0.0 % (0.0-0.19); PLATELET COUNT (AUTO) 194 K/uL (130-400); RED BLOOD CELL COUNT(AUTO) 3.27 MIL/uL (4.00-5.50); RED CELL DISTRIBUTION WIDTH 14.3 % (11.0-15.5); WHITE BLOOD COUNT (AUTO) 10.6 K/uL (4.8-10.8)
[2024-12-20 06:21] LABS: CREATININE 0.6 mg/dL (0.5-1.0); GLOMERULAR FILTR. RATE CALC 96.0 mL/min (>90); GLUCOSE,RANDOM 139.0 mg/dL (70-105); PHOSPHORUS 2.7 mg/dL (2.5-4.9); SODIUM SERUM 135.0 mmol/L (136-145); UREA NITROGEN, BLOOD 16.0 mg/dL (7-18)
[2024-12-20] MEDS: ALBUTEROL 0.083% 2.5 MG/3 ML INH IH SCH (07:23)
[2024-12-20] MEDS ORDERED: HYDROcodone/APAP 5/325 1 TAB TABLET PO PRN (08:30)
[2024-12-20] MEDS ORDERED: SALMETEROL IH PRN (08:30)
[2024-12-20] MEDS ORDERED: CYCLOBENZAPRINE HCL 10 MG TABLET PO PRN (08:30)
[2024-12-20] MEDS ORDERED: FLUTICASONE IH PRN (08:30)
[2024-12-20] MEDS ORDERED: ENOXAPARIN SODIUM 40 MG/0.4 ML SYRINGE SQ SCH (09:00)
[2024-12-20] MEDS ORDERED: FAMOTIDINE 20MG TAB PO SCH (09:00)
[2024-12-20] MEDS ORDERED: LIDOCAINE 4% ADH..PATCH TP SCH (09:00)
[2024-12-20] MEDS: HYDROcodone/APAP 5/325 1 TAB TABLET PO PRN (09:46)
[2024-12-20] MEDS: ASPIRIN 325MG EC TAB PO SCH (09:47)
[2024-12-20] MEDS: TIZANIDINE HCL 2 MG TABLET PO SCH (09:52)
--- NOTE | 2024-12-20 11:03 | DS ---
Discharge Summary Hospital Course Summary: Date of service 12/20/2022 The patient admitted to hospital 12/20/2024 with the history of present illness: Patient states that she came to the emergency department with a chief complaint of knee pain. Onset was 12/21/2024. Location is right knee. Duration is constant. Character is described as sharp. There was a is no alleviating factors. Symptoms are aggravated with physical therapy given at home. Patient denies any associated numbness or tingling. Today in the emergency department labs unremarkable, diagnostic radiology shows postoperative changes of the right knee. Emergency room physician recommended patient be admitted with a diagnosis of intractable right knee pain so she could be evaluated by orthopedic service. HOSPITAL COURSE The patient has been admitted to the medical floor. The patient remains alert oriented x3, hemodynamically stable, afebrile, saturating normal on room air. X-ray of the right knee no acute bony abnormality, total knee joint replacement prosthesis in place, no evidence of hardware failure, with a straight soft tiss ue emphysema and swollen around the anterior aspect of the knee. Ultrasound Doppler right lower extremity no evidence of DVT. Orthopedic consultation requested, possible discharge home today. 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 Home Medications: Active Scripts Cholecalciferol (Vitamin D3) (Vitamin D3) 50 Mcg (2000 Unit) Capsule, 1 CAP PO DAILY for 30 Days, #30 CAP 0 Refills Prov:KIM CODY MD 12/19/24 Pantoprazole Sodium (Protonix) 40 Mg Tablet.dr, 40 MG PO DAILY, #30 TAB 0 Refills Prov:KIM CODY MD 12/19/24 Docusate Sodium (Colace) 100 Mg Capsule, 1 CAP PO BID for 30 Days, #60 CAP 0 Refills Prov:KIM CODY MD 12/19/24 Hydrocodone/Acetaminophen (Hydrocodon-Acetaminophen 5-325) 5 Mg-325 Mg Tablet, 1-2 TAB PO Q6HPRN PRN for MODERATE PAIN (4-6), #56 TAB 0 Refills Prov:KIM CODY MD 12/19/24 Gabapentin (Neurontin) 100 Mg Capsule, 100 MG PO TID, #90 CAP 0 Refills Prov:KIM CODY MD 12/19/24 Cyclobenzaprine HCl (Cyclobenzaprine HCl) 10 Mg Tablet, 5 MG PO Q8H PRN for MUSCLE SPASMS, #45 TAB 0 Refills Prov:KIM CODY MD 12/19/24 Aspirin (Aspirin EC) 325 Mg Tablet.dr, 325 MG PO DAILY, #30 TAB 0 Refills Prov:KIM CODY MD 12/19/24 Reported Medications Fluticasone/Salmeterol (ADVAIR 250-50 DISKUS) 14 Inh/Disk Inh, 1 PUFF IH BID PRN for SHORTNESS OF BREATH, INHALER 12/17/24 Fluconazole (Fluconazole) 150 Mg Tablet, 150 MG PO QODAY, TAB X 5 DAYS ( STARTED 12/11/24) 12/17/24 Metronidazole (Metronidazole) 500 Mg Tablet, 500 MG PO BID, TAB X 10 DAYS (STARTED 12/11/24) 12/17/24 Sennosides (Senna) 8.6 Mg Tablet, 8.6 MG PO DAILY, TAB 12/17/24 Discontinued Reported Medications Trazodone HCl (Desyrel) 50 Mg Tab, 1-2 TAB PO HS 04/22/20 Dicyclomine HCl (Bentyl) 20 Mg Tab, 1 TAB PO TID PRN for ABDOMINAL PAIN 04/22/20 Cetirizine HCl (Zyrtec) 10 Mg Capsule, 10 MG PO AM, CAP 07/19/18 Glucosamine/D3/Boswellia Roz (Osteo Bi-Flex Caplet) 1 Each Tablet, 1 EACH PO AM, TAB 07/19/18 Fluticasone/Salmeterol (Advair 250-50 Diskus) 1 Each Blst.w.dev, 1 EACH IH HS PRN for SHORTNESS OF BREATH/WHEEZING 05/19/15 Ibuprofen (Advil) 200 Mg Capsule, 200 MG PO Q4-6 H PRN for MILD PAIN (1-3), CAP 08/20/14 Discontinued Scripts Loratadine (Loratadine) 10 Mg Tablet, 1 TAB PO DAILY for allergy symptoms for 30 Days, #30 TAB 0 Refills Prov:JOHN SAMS MD 10/25/24 Sodium Chloride ([place] Saline) 0.65 % Drops, 2 DROP NS QID, #50 ML 0 Refills Prov:JOHN SAMS MD 10/25/24 Topiramate (Topamax) 25 Mg Tablet, 25 MG PO DAILYDINNER, #30 TAB 2 Refills Prov:MACKENZIE GROSS Sr., MD 02/09/23 Cephalexin Monohydrate (Keflex) 500 Mg Cap, 500 MG PO QID for 7 Days, #28 CAP 0 Refills Prov:MACKENZIE GROSS Sr., MD 02/09/23 Hydroxyzine HCl (Atarax) 25 Mg Tab, 25 MG PO QID for ITCHINESS, #30 TAB Prov:PATRICIA MILLER MD 11/20/21 Methylprednisolone (Medrol) 4 Mg Tab.ds.pk, 4 MG PO AD for 5 Days, #1 KIT Prov:PATRICIA MILLER MD 11/20/21 Azithromycin (Zithromax) 250 Mg Tablet, 250 MG PO DAILY for 4 Days, #4 TAB 0 Refills Prov:SILVIANO GOEL MD 06/14/21 Prednisone (Prednisone) 20 Mg Tablet, 1 TAB PO AD for 6 Days, #14 TAB 0 Refills TAKE 1 TAB BY MOUTH THREE TIMES PER DAY X3 DAYS, THEN TAKE 1 TAB BY MOUTH TWICE A DAY X2 DAYS, THEN TAKE 1 TAB BY MOUTH ONCE A DAY X1 DAY. Prov:SILVIANO GOEL MD 06/14/21 Benzonatate (Tessalon Perles) 100 Mg Cap, 100 MG PO TID PRN for COUGH, #30 CAP 0 Refills Prov:SILVIANO GOEL MD 06/14/21 Time spent arranging discharge: 31-60 minutes SHAHBAZ ALFREDO MD Dec 20, 2024 11:03
--- NOTE | 2024-12-20 11:57 | NUR ---
DCP:HOME Pt currently lives alone in her home. pt states that she has been using a cane at home to assist ambulate. Pt states that for the most part she is able to complete ADLs independently. PCP is Danika Card and uses [facility] for any RX needs. At DC pt will want to go home and family can assist with transportation.
--- NOTE | 2024-12-20 14:49 | PN ---
ok to DC Vitals/Labs Vital Signs Date Time Temp Pulse Resp B/P (MAP) Pulse Ox O2 Delivery O2 Flow Rate FiO2 12/20/24 12:22 97.9 84 18 140/65 983 Room Air 12/20/24 11:30 21 12/20/24 03:55 0 Laboratory Tests 12/19/24 23:55 12/20/24 05:46 Medications Current Medications Morphine Sulfate 4 mg ONCE ONCE IVP Last administered on 12/20/24at 00:15; Start 12/20/24 at 00:00; Stop 12/20/24 at 00:01; Status DC Ketorolac Tromethamine 15 mg ONCE ONCE IV Last administered on 12/20/24at 00:15; Start 12/20/24 at 00:00; Stop 12/20/24 at 00:01; Status DC Acetaminophen/ Hydrocodone Bitart 1 tab ONCE ONCE PO Last administered on 12/20/24at 01:30; Start 12/20/24 at 01:00; Stop 12/20/24 at 01:26; Status DC Dexamethasone Sodium Phosphate 6 mg ONCE ONCE IVP Last administered on 12/20/24at 01:30; Start 12/20/24 at 01:00; Stop 12/20/24 at 01:26; Status DC Morphine Sulfate 2 mg ONCE ONCE IVP Last administered on 12/20/24at 03:20; Start 12/20/24 at 03:30; Stop 12/20/24 at 03:31; Status DC Acetaminophen 650 mg Q6H PRN PO; Start 12/20/24 at 03:00; Stop 12/20/24 at 08:22; Status DC Enoxaparin Sodium 40 mg DAILY SQ; Start 12/20/24 at 09:00; Stop 12/20/24 at 08:22; Status DC Famotidine 20 mg DAILY PO; Start 12/20/24 at 09:00; Stop 12/20/24 at 08:12; Status DC Hydralazine HCl 10 mg Q6H PRN IV; Start 12/20/24 at 03:00; Stop 12/20/24 at 08:12; Status DC Lactulose 20 gm BID PRN PO; Start 12/20/24 at 03:00; Stop 01/19/25 at 02:59 Morphine Sulfate 2 mg Q4H PRN IVP Last administered on 12/20/24at 05:50; Start 12/20/24 at 03:00; Stop 12/20/24 at 08:12; Status DC Ondansetron HCl 4 mg Q6H PRN IV; Start 12/20/24 at 03:00; Stop 01/19/25 at 02:59 Albuterol Sulfate 2.5 mg [id number] IH Last administered on 12/20/24at 11:23; Start 12/20/24 at 06:00; Stop 01/19/25 at 05:59 Lidocaine 1 each DAILY TP; Start 12/20/24 at 09:00; Stop 12/20/24 at 08:22; Status DC Aspirin 325 mg DAILY PO Last administered on 12/20/24at 09:47; Start 12/20/24 at 09:00; Stop 01/19/25 at 08:59 Cyclobenzaprine HCl 5 mg Q8H PRN PO; Start 12/20/24 at 08:30; Stop 12/20/24 at 08:22; Status DC Gabapentin 100 mg TID PO Last administered on 12/20/24at 09:47; Start 12/20/24 at 09:00; Stop 01/19/25 at 08:59 Metronidazole 500 mg BID PO Last administered on 12/20/24at 09:47; Start 12/20/24 at 09:00; Stop 12/30/24 at 08:59 Pantoprazole Sodium 40 mg DAILY PO Last administered on 12/20/24at 09:47; Start 12/20/24 at 09:00; Stop 01/19/25 at 08:59 Home Med (Cholecalciferol (Vitamin D3) 50MCG CAP) DAILY PO; Start 12/20/24 at 09:00; Stop 01/19/25 at 08:59 Fluconazole 150 mg QODAY PO Last administered on 12/20/24at 09:47; Start 12/20/24 at 09:00; Stop 01/19/25 at 08:59 Home Med (Fluticasone/ [place]... BID PRN IH; Start 12/20/24 at 08:30; Stop 01/19/25 at 08:29 Hydralazine HCl 5 mg Q6H PRN IV; Start 12/20/24 at 09:00; Stop 01/19/25 at 08:59 Morphine Sulfate 1 mg Q4H PRN IVP; Start 12/20/24 at 11:00; Stop 12/27/24 at 10:59 Tizanidine HCl 2 mg TID PO Last administered on 12/20/24at 09:52; Start 12/20/24 at 09:00; Stop 01/19/25 at 08:59 Acetaminophen/ Hydrocodone Bitart 1 tab Q4H PRN PO Last administered on 12/20/24at 09:46; Start 12/20/24 at 08:30; Stop 12/25/24 at 08:29 Acetaminophen/ Hydrocodone Bitart 2 tab Q4H PRN PO; Start 12/20/24 at 08:30; Stop 12/25/24 at 08:29 Ketorolac Tromethamine 30 mg Q6H PRN IM; Start 12/20/24 at 08:30; Stop 12/25/24 at 08:29 KIM CODY MD Dec 20, 2024 14:49
--- NOTE | 2024-12-20 16:03 | NUR ---
Pt. given discharge instructions, verbalized understanding. All questions answered. Peripheral IV discontinued, hemostasis achieved. Pt. dc'd via w/c to private vehicle. No acute distress noted.
== END 2024-12-20 16:04 | disposition home or self-care (01) ==
LOC: EDH 23:40 → EDHIP 12-20 02:26 → INTOOBSV 12-20 02:26 → 1MS 12-20 03:40
PROVIDERS: ADMIT Internal Medicine; ATTEND Internal Medicine
DX: M25.561 Pain in right knee (principal); R00.0 Tachycardia, unspecified; N32.1 Vesicointestinal fistula; J45.909 Unspecified asthma, uncomplicated; E11.9 Type 2 diabetes mellitus without complications; I25.10 Atherosclerotic heart disease of native coronary artery without angina pectoris; F17.210 Nicotine dependence, cigarettes, uncomplicated; R60.0 Localized edema; Z86.73 Personal history of transient ischemic attack (TIA), and cerebral infarction without residual deficits; Z79.899 Other long term (current) drug therapy; Z98.890 Other specified postprocedural states
CPT/HCPCS: 99284; 73562; 93971; 96374; 96376; 96375; 83735; 84100; 80053; 85025 ×2; 85651; 87086; 86140; 81001; 36415 ×2; 97161; 97116; 94640; J1100; G0378 ×5; J2270 ×3; J1885; 80048; 94664

== ENCOUNTER 2025-02-08 08:21 | Emergency (ER) | payer MEDICARE ==
[~2025-02-08] VITALS: Ht 152.4 cm; Wt 62.6 kg
[2025-02-08] MEDS: BACLOFEN 10 MG TABLET PO ONE (10:08)
--- NOTE | 2025-02-08 10:29 | ERN ---
General Chief Complaint: Lower Extremity Pain/Injury Stated Complaint: RIGHT LEG PAIN Time Seen by MD: 08:27 History of Present Illness Initial Comments 70-year-old female came in for left lower extremity cramping. Patient is able to ambulate without any concerns. Patient states that she has been having g ever since her knee replacement surgery two months ago. Patient otherwise denies trauma. Allergies: Coded Allergies: No Known Drug Allergies (Unverified Allergy, Unknown, 04/23/20) No Known Food Allergies (Unverified Allergy, Unknown, 04/23/20) Home Meds Active Scripts Cholecalciferol (Vitamin D3) (Vitamin D3) 50 Mcg (2000 Unit) Capsule, 1 CAP PO DAILY for 30 Days, #30 CAP 0 Refills Prov:KIM CODY MD 12/19/24 Pantoprazole Sodium (Protonix) 40 Mg Tablet., 40 MG PO DAILY, #30 TAB 0 Refills Prov:KIM CODY MD 12/19/24 Docusate Sodium (Colace) 100 Mg Capsule, 1 CAP PO BID for 30 Days, #60 CAP 0 Refills Prov:KIM CODY MD 12/19/24 Hydrocodone/Acetaminophen (Hydrocodon-Acetaminophen 5-325) 5 Mg-325 Mg Tablet, 1-2 TAB PO Q6HPRN PRN for MODERATE PAIN (4-6), #56 TAB 0 Refills Prov:KIM CODY MD 12/19/24 Gabapentin (Neurontin) 100 Mg Capsule, 100 MG PO TID, #90 CAP 0 Refills Prov:KIM CODY MD 12/19/24 Cyclobenzaprine HCl (Cyclobenzaprine HCl) 10 Mg Tablet, 5 MG PO Q8H PRN for MUSCLE SPASMS, #45 TAB 0 Refills Prov:KIM CODY MD 12/19/24 Aspirin (Aspirin EC) 325 Mg Tablet., 325 MG PO DAILY, #30 TAB 0 Refills Prov:KIM CODY MD 12/19/24 Reported Medications Fluticasone/Salmeterol (ADVAIR 250-50 DISKUS) 14 Inh/Disk Inh, 1 PUFF IH BID PRN for SHORTNESS OF BREATH, INHALER 12/17/24 Fluconazole (Fluconazole) 150 Mg Tablet, 150 MG PO QODAY, TAB X 5 DAYS ( STARTED 12/11/24) 12/17/24 Metronidazole (Metronidazole) 500 Mg Tablet, 500 MG PO BID, TAB X 10 DAYS (STARTED 12/11/24) 12/17/24 Sennosides (Senna) 8.6 Mg Tablet, 8.6 MG PO DAILY, TAB 12/17/24 Past Medical History Past Medical History: No Pertinent History Past Surgical History: Other Surgical History Other: ABDOMINAL Social History Social History: Negative, Lives with family Female( History) History: Not Applicable ROS Dictation Leg cramp Physical Exam General Appearance: (+) no apparent distress Orientation: (+) alert, (+) oriented x 3 Neck: (+) normal inspection Respiratory: (+) chest non-tender, (+) lungs clear Heart: (+) regular, (+) no gallop Vascular: (+) no edema, (+) normal peripheral pulse Gastrointestinal: (+) soft, (+) non-tender, (+) no organomegaly, (+) bowel sound present Extremities: (+) normal range of motion, (+) non-tender MDM MDM: Differential diagnosis: Rationale: Tests considered and ordered secondary to shared decision making include: Previous outside records reviewed: Old ER visits. Risk of complication and/or morbidity or mortality of patient management: None Medications-Per medication reconciliation Need for hospitalization: Patient does not meet criteria for hospitalization. Need for emergency major/minor surgery: No There are no social concerns with this patient. Prescription drug management Prescriptions will include symptomatic care Patient's prior external medical records from other ER visits were reviewed by me as indicated. Prior testing and results from previous visits were reviewed. Prior tests were taken into account with medical decision making and resource utilization, independent historian/historians were used to obtain complete medical history. I independently interpreted the test that were performed, results were reviewed by me and considered findings on radiology if ordered. Medical management and examination interpretation discussions were had by me with other qualified healthcare professionals as indicated for the patient's care. ED Course Orders Procedure Category Date Status Time Ondansetron 4mg Inj PHA 02/08/25 Complete (Zofran 4mg Inj) 09:30 Ketorolac PHA 02/08/25 Complete Tromethamine 30mg/Ml 09:30 Baclofen (Baclofen) PHA 02/08/25 Complete 09:30 Morphine 4mg Syg PHA 02/08/25 Complete (Morphine 4mg Syg) 09:30 Current Medications Medications (Trade) Dose Ordered Sig/[place] Route PRN Reason Start Time Stop Time Status Last Admin Dose Admin Baclofen (Baclofen) 10 mg ONCE ONCE PO 02/08/25 09:30 02/08/25 09:31 DC Ketorolac Tromethamine (toRADol) 30 mg ONCE ONCE IVP 02/08/25 09:30 02/08/25 09:31 DC 02/08/25 10:08 Morphine Sulfate (morPHINE 4MG SYG) 2 mg ONCE ONCE IVP 02/08/25 09:30 02/08/25 09:31 DC 02/08/25 10:08 Ondansetron HCl (zoFRAN 4MG INJ) 4 mg ONCE ONCE IVP 02/08/25 09:30 02/08/25 09:31 DC 02/08/25 10:08 Vital Signs Date Time Temp Pulse Resp B/P (MAP) Pulse Ox O2 Delivery O2 Flow Rate FiO2 02/08/25 09:01 97.9 87 20 180/80 100 Room Air* 0 21 02/08/25 08:22 98.2 91 16 161/81 99 Room Air DX & DISP Disposition: Discharge Departure Impression: Primary Impression: Leg cramps Condition: Stable Referrals: ISAMAR NEIL (PCP) DANITZA MIXON MD Feb 08, 2025 10:29
[2025-02-08 10:34] VITALS: BP 158/79; PULSE 79; RESP 20; TEMP 98.1; O2SAT 97
== END 2025-02-08 11:01 | disposition home or self-care (01) ==
LOC: EDH 08:21
DX: R25.2 Cramp and spasm (principal); M79.604 Pain in right leg; Z79.82 Long term (current) use of aspirin; Z79.899 Other long term (current) drug therapy; Z79.51 Long term (current) use of inhaled steroids; Z96.659 Presence of unspecified artificial knee joint
CPT/HCPCS: 99284; 96374; 96375; J1885; J2405; J2270